=== PATIENT | male | born 1975 | race Caucasian/White ===

== ENCOUNTER 2019-03-01 13:15 | Emergency (ER) | payer OTHER ==
--- NOTE | 2019-03-01 13:21 | EDM.PDOC ---
ED HPI GENERAL MEDICAL PROBLEM - General Chief Complaint: Abdominal Pain Stated Complaint: LEFT ABD PAIN Time Seen by Provider: 03/01/19 13:15 Source of Information: Reports: Patient History Limitations: Reports: No Limitations - History of Present Illness INITIAL COMMENTS - FREE TEXT/NARRATIVE: HISTORY AND PHYSICAL: History of present illness: Patient is a 44-year-old male presents to the ED today with concern of left lower quadrant abdominal pain since since this morning. Patient states he was sleeping and the pain woke him up and since this morning it has been getting worse. Patient states he has not taken anything for his symptoms. Patient denies any health history or any other symptoms or concerns. Patient denies fever, chills, chest pain, shortness of breath, or cough. Denies headache, neck stiff ness, change in vision, syncope, or near syncope. Denies nausea, vomiting, diarrhea, constipation, or dysuria. Has not noted any blood in urine or stool. Patient has been eating and drinking appropriately. Review of systems: As per history of present illness and below otherwise all systems reviewed and negative. Past medical history: As per history of present illness and as reviewed below otherwise noncontributory. Surgical history: As per history of present illness and as reviewed below otherwise noncontributory. Social history: See social history for further information Family history: As per history of present illness and as reviewed below otherwise noncontributory. Physical exam: General: Patient is alert, oriented, and in no acute distress. Patient laying comfortably on exam table. HEENT: Atraumatic, normocephalic, pupils equal and reactive bilaterally, negative for conjunctival pallor or scleral icterus, mucous membranes moist, TMs normal bilaterally, throat clear, neck supple, nontender, trachea midline. No drooling or trismus noted. No meningeal signs. No hot potato voice noted. Lungs: Clear to auscultation, breath sounds equal bilaterally, chest nontender. Heart: S1S2, regular rate and rhythm without overt murmur Abdomen: Soft, nondistended, moderate tenderness of the LLQ without guarding. Negative for masses or hepatosplenomegaly. Negative for costovertebral tenderness. Pelvis: Stable nontender. Genitourinary: Deferred. Rectal: Deferred. Skin: Intact, warm, dry. No lesions or rashes noted. Extremities: Atraumatic, negative for cords or calf pain. Neurovascular unremarkable. Neuro: Awake, alert, oriented. Cranial nerves II through XII unremarkable. Cerebellum unremarkable. Motor and sensory unremarkable throughout. Exam nonfocal. Notes: Discussed the importance for follow-up with general surgery. Voices understanding and is agreeable to plan of care. Denies any further questions or concerns at this time. Diagnostics: CBC, CMP, UA, lipase, EKG, chest x-ray, abdominal pelvic CT Therapeutics: NS Prescription: Ciprofloxacin, metronidazole Impression: Diverticulitis Plan: 1. Take medication as prescribed. You can alternate ibuprofen and Tylenol as directed for pain and discomfort. 2. Remain on an all liquid diet for the next 48 hours or until improvement of symptoms. 3. Follow up with the general surgeon and your primary care provider as discussed. Return to the ED as needed and as discussed. Definitive disposition and diagnosis as appropriate pending reevaluation and review of above. Right Lower Abdominal Pain Score (Numeric/FACES): 10 - Related Data Allergies Allergy/AdvReac Type Severity Reaction Status Date / Time Penicillins Allergy Cannot Verified 03/01/19 13:21 Remember Home Meds: Home Meds Aspirin 1 tab PO DAILY 01/14/18 [History] Pantoprazole [ProTONIX] 40 mg PO ACBREAKFAST #30 tab.cr 01/15/18 [Rx] Past Medical History - Past Health History Medical/Surgical History: Denies Medical/Surgical History Gastrointestinal History: Reports: GERD - Past Surgical History GI Surgical History: Reports: None Social & Family History - Family History Family Medical History: Noncontributory - Caffeine Use Caffeine Use: Reports: Coffee, Energy Drinks ED ROS GENERAL - Review of Systems Review Of Systems: Comprehensive ROS is negative, except as noted in HPI. ED EXAM, GENERAL - Physical Exam Exam: See Below (see dictation) Course - Vital Signs Last Recorded V/S: Last Vital Signs Temp 97.8 F 03/01/19 13:21 Pulse 80 03/01/19 15:10 Resp 18 03/01/19 15:10 BP 132/76 03/01/19 15:10 Pulse Ox 95 03/01/19 15:10 - Orders/Labs/Meds Orders: Active Orders 24 hr Category Date Time Status EKG Documentation Completion [RC] STAT Care 03/01/19 13:38 Active Labs: Laboratory Tests 03/01/19 03/01/1919 Range/Units 13:26 13:48 13:48 WBC 11.70 H (4.0-11.0) K/uL RBC 5.24 (4.50-5.90) M/uL Hgb 14.6 (13.0-17.0) g/dL Hct 44.0 (38.0-50.0) % MCV 84.0 (80.0-98.0) fL MCH 27.9 (27.0-32.0) pg MCHC 33.2 (31.0-37.0) g/dL RDW Std Deviation 49.9 (28.0-62.0) fl RDW Coeff of Sarah 16 H (11.0-15.0) % Plt Count 277 (150-400) K/uL MPV 9.40 (7.40-12.00) fL Neut % (Auto) 69.9 (48.0-80.0) % Lymph % (Auto) 20.3 (16.0-40.0) % Lander % (Auto) 7.8 (0.0-15.0) % Eos % (Auto) 1.8 (0.0-7.0) % Baso % (Auto) 0.2 (0.0-1.5) % Neut # (Auto) 8.2 H (1.4-5.7) K/uL Lymph # (Auto) 2.4 (0.6-2.4) K/uL Lander # (Auto) 0.9 H (0.0-0.8) K/uL Eos # (Auto) 0.2 (0.0-0.7) K/uL Baso # (Auto) 0.0 (0.0-0.1) K/uL Nucleated RBC % 0.0 /100WBC Nucleated RBCs # 0 K/uL Sodium 143 (136-148) mmol/L Potassium 3.7 (3.5-5.1) mmol/L Chloride 107 (98-107) mmol/L Carbon Dioxide 26.8 (21.0-32.0) mmol/L BUN 16 (7.0-18.0) mg/dL Creatinine 1.0 (0.8-1.3) mg/dL Est Cr Clr Drug Dosing 83.29 mL/min Estimated GFR (MDRD) > 60.0 ml/min Glucose 106 (74-106) mg/dL Calcium 8.3 L (8.5-10.1) mg/dL Total Bilirubin 0.6 (0.2-1.0) mg/dL AST 16 (15-37) IU/L ALT 30 (14-63) IU/L Alkaline Phosphatase 105 (46-116) U/L Total Protein 7.1 (6.4-8.2) g/dL Albumin 3.5 (3.4-5.0) g/dL Globulin 3.6 (2.6-4.0) g/dL Albumin/Globulin Ratio 1.0 (0.9-1.6) Lipase 105 (73-393) U/L Urine Color YELLOW Urine Appearance CLEAR Urine pH 6.0 (5.0-8.0) Ur Specific [place] >= 1.030 (1.001-1.035) Urine Protein NEGATIVE (NEGATIVE) mg/dL Urine Glucose (UA) NEGATIVE (NEGATIVE) mg/dL Urine Ketones NEGATIVE (NEGATIVE) mg/dL Urine Occult Blood TRACE-LYSED H (NEGATIVE) Urine Nitrite NEGATIVE (NEGATIVE) Urine Bilirubin NEGATIVE (NEGATIVE) Urine Urobilinogen 1.0 (<2.0) EU/dL Ur Leukocyte Esterase NEGATIVE (NEGATIVE) Urine RBC 1-3 (0-2/HPF) Urine WBC 0-2 (0-5/HPF) Ur Epithelial Cells OCCASIONAL (NONE-FEW) Urine Bacteria FEW (NEGATIVE) Urine Mucus MODERATE (NONE-MOD) Meds: Medications Discontinued Medications Generic Name Dose Route Start Last Admin Trade Name Freq PRN Reason Stop Dose Admin Sodium Chloride 1,000 mls @ 999 mls/hr 03/01/19 13:37 03/01/19 13:56 Normal Saline IV 03/01/19 14:37 999 mls/hr BOLUS ONE Administration Iopamidol 100 ml 03/01/19 14:53 03/01/19 14:55 Isovue-370 (76%) IVPUSH 03/01/19 14:54 100 ml ONETIME STA Administration Departure - Departure Time of Disposition: 15:57 Disposition: Home, Self-Care 01 Clinical Impression: Diverticulitis - Discharge Information Referrals: Judah Ramesh MD [Primary Care Provider] - Forms: ED Department Discharge Additional Instructions: The following information is given to patients seen in the emergency department who are being discharged to home. This information is to outline your options for follow-up care. We provide all patients seen in our emergency department with a follow-up referral. The need for follow-up, as well as the timing and circumstances, are variable depending upon the specifics of your emergency department visit. If you don't have a primary care physician on staff, we will provide you with a referral. We always advise you to contact your personal physician following an emergency department visit to inform them of the circumstance of the visit and for follow-up with them and/or the need for any referrals to a consulting specialist. The emergency department will also refer you to a specialist when appropriate. This referral assures that you have the opportunity for follow-up care with a specialist. All of these measure are taken in an effort to provide you with optimal care, which includes your follow-up. Under all circumstances we always encourage you to contact your private physician who remains a resource for coordinating your care. When calling for follow-up care, please make the office aware that this follow-up is from your recent emergency room visit. If for any reason you are refused follow-up, please contact the [facility] Emergency Department at and asked to speak to the emergency department charge nurse. [facility] Primary Care [address] [place], [place] [id number] [address] [address] [facility] - General Surgery Professional Building [address] [place] [address], [address] [place] [address] 1. Take medication as prescribed. You can alternate ibuprofen and Tylenol as directed for pain and discomfort. 2. Remain on an all liquid diet for the next 48 hours or until improvement of symptoms. 3. Follow up with the general surgeon and your primary care provider as discussed. Return to the ED as needed and as discussed. Sepsis Event Note - Focused Exam Vital Signs: Vital Signs Temp Pulse Resp BP Pulse Ox 03/01/19 15:10 80 18 132/76 95 03/01/19 13:21 97.8 F 94 18 126/81 95 Date Exam was Performed: 03/01/19 Time Exam was Performed: 15:52 - My Orders Last 24 Hours: My Active Orders 03/01/19 13:38 EKG Documentation Completion [RC] STAT - Assessment/Plan Last 24 Hours: My Active Orders 03/01/19 13:38 EKG Documentation Completion [RC] STAT
[2019-03-01] MEDS ORDERED: Sodium Chloride 0.9% 1,000 ML IV ONE (13:37)
--- NOTE | 2019-03-01 13:57 | CR ---
INDICATION: Pt w/abd pain. TECHNIQUE: Chest 1 view. COMPARISON: 01/14/18 FINDINGS: Cardiovascular and mediastinum: Heart size and vasculature are normal in caliber and appearance. Mediastinum is within normal limits. Lungs and pleural space: Lungs are clear. No sign of infiltrate or mass. No sign of pleural effusion. No pneumothorax. Bones and soft tissues: No significant findings. IMPRESSION: Unremarkable chest. Dictated by: Easton Jacques MD @ 03/01/2019 13:55:02 (Electronically Signed)
[2019-03-01 14:24] LABS: BLOOD UREA NITROGEN,BUN 16 mg/dL (7.0-18.0); CARBON DIOXIDE,CO2 26.8 mmol/L (21.0-32.0); CHLORIDE,CL 107 mmol/L (98-107); GLUCOSE RANDOM 106 mg/dL (74-106); LIPASE 105 U/L (73-393); POTASSIUM,K 3.7 mmol/L (3.5-5.1); SODIUM,NA 143 mmol/L (136-148)
[2019-03-01] MEDS ORDERED: Iopamidol 755 Mg/ML 100 ML Bottle IVPUSH STA (14:53)
[2019-03-01 15:10] VITALS: BP 132/76; PULSE 80
--- NOTE | 2019-03-01 15:31 | CT ---
INDICATION: Left lower quadrant pain since 6 a.m. this morning. TECHNIQUE: CT of abdomen and pelvis performed after IV injection of 100 mL of Isovue-370. COMPARISON: CT 11/10/2015 FINDINGS: Mild linear atelectasis in the dependent lung bases. Tiny bleb in the right lower lobe. Tiny cyst in the right kidney. Small to moderate sized duodenal diverticulum with air-fluid level is slightly larger. Colonic diverticulosis. Moderate wall thickening involving a long segment of the mid and proximal sigmoid colon likely related to the underlying diverticulosis. The acute inflammatory soft tissue stranding about the mid sigmoid colon seen previously is no longer present consistent with resolution of acute diverticulitis. New mild to moderate wall thickening involving the mid and distal descending colon over a 6-7 cm segment with surrounding inflammatory fat stranding particularly about a diverticulum on image 96. Findings consistent with acute diverticulitis involving the descending colon. No abscess or free air. Appendix normal. Remainder negative. IMPRESSION: 1. CT findings typical of acute diverticulitis involving the mid and distal descending colon without abscess or free intraperitoneal air. 2. Resolution of sigmoid colonic diverticulitis. Moderately prominent wall thickening persists in the mid and proximal sigmoid colon likely related to underlying diverticulosis. Other findings as above. Please note that all CT scans at this facility use dose modulation, iterative reconstruction, and/or weight-based dosing when appropriate to reduce radiation dose to as low as reasonably achievable. Dictated by Clifford Esteves MD @ Mar 01 2019 3:23PM Signed by Dr. Clifford Esteves @ Mar 01 2019 3:30PM
== END 2019-03-01 16:20 | disposition home or self-care (01) ==
LOC: MW.ED 13:15
DX: K57.32 Diverticulitis of large intestine without perforation or abscess without bleeding (principal); K21.9 Gastro-esophageal reflux disease without esophagitis; Z88.0 Allergy status to penicillin; Z79.82 Long term (current) use of aspirin
CPT/HCPCS: 71045; 74177; 80053; 81001; 83690; 85025; 93005; 96360; 99284; J7030; Q9967

== ENCOUNTER 2019-03-02 02:14 | Observation (INO) | payer OTHER ==
[2019-03-02] MEDS ORDERED: Morphine 2 MG/ML Syringe IVPUSH ONE (02:29)
[2019-03-02] MEDS ORDERED: Sodium Chloride 0.9% 2.5 ML Syringe FLUSH PRN (02:29)
[2019-03-02] MEDS ORDERED: Ondansetron 4 MG/2 ML SDV IVPUSH ONE (02:29)
[2019-03-02] MEDS ORDERED: Sodium Chloride 0.9% 1,000 ML IV ONE (02:29)
[2019-03-02] MEDS ORDERED: Sodium Chloride 0.9% 10 ML Syringe FLUSH PRN (02:29)
--- NOTE | 2019-03-02 02:34 | EDM.PDOC ---
ED HPI GENERAL MEDICAL PROBLEM - General Chief Complaint: Abdominal Pain Stated Complaint: ABD PAIN Time Seen by Provider: 03/02/19 02:22 - History of Present Illness INITIAL COMMENTS - FREE TEXT/NARRATIVE: HISTORY AND PHYSICAL: History of present illness: The patient is a 44-year-old male who was seen here yesterday afternoon, approximately 12 hours ago, and was evaluated with labs and a CAT scan and was diagnosed with acute diverticulitis involving the mid and distal descending colon without abscess or free air and was started on antibiotics, Cipro and Flagyl. At the presentation earlier today he did not require pain medication and he says that he went home and was feeling okay and pushing a lot of hydration and that at approximately 9 PM, 5-1/2 hours ago, the pain seemed to get suddenly worse in the left lower quadrant and he had significant nausea without vomiting. He said no diarrhea and he has not taken any [id number] medications for pain. He says that he took his first dose of antibiotics when he got home he has not had a fever since the pain restarted. He has no flank pain and no urinary complaints.. The CT scan was reviewed by me as well as his provider note please see below for more details. Review of systems: As per history of present illness and below otherwise all systems reviewed and negative. Past medical history: As per history of present illness and as reviewed below otherwise noncontributory. Surgical history: As per history of present illness and as reviewed below otherwise noncontributory. Social history: No reported history of drug or alcohol abuse. Family history: As per history of present illness and as reviewed below otherwise noncontributory. Physical exam: General: Well-developed well-nourished mildly overweight man who looks uncomfortable in the ED but is nontoxic. Vital signs are noted by me HEENT: Atraumatic, normocephalic, pupils reactive, negative for conjunctival pallor or scleral icterus, mucous membranes moist, throat clear, neck supple, nontender, trachea midline. Lungs: Clear to auscultation, breath sounds equal bilaterally, chest nontender. Heart: S1S2, regular, negative for clicks, rubs, or JVD. Abdomen: Soft, nondistended, left lower quadrant tenderness which is moderate with some voluntary guarding but no involuntary guarding or rebound and bowel sounds are hypoactive without any tympany on percussion, there are no masses or hepatosplenomegaly. Negative for costovertebral tenderness. Pelvis: Stable nontender. Genitourinary: Deferred. Rectal: Deferred. Extremities: Atraumatic, negative for cords or calf pain. Neurovascular unremarkable. Neuro: Awake, alert, oriented. Cranial nerves II through XII unremarkable. Cerebellum unremarkable. Motor and sensory unremarkable throughout. Exam nonfocal. Diagnostics: CBC CMP lactic acid abdominal x-rays Therapeutics: IV fluids Zofran morphine Cipro and Flagyl CT scan done earlier was reviewed which it did reveal a long segment of mid and proximal sigmoid colon thickening which appeared to be consistent with a resolution of an acute diverticulitis and there was new mild to moderate wall thickening involving the mid and distal descending colon over a 6-7 cm segment with surrounding inflammatory fat and fat stranding without perforation consistent with an acute diverticulitis. There is no evidence of free air or abscess formation. When I discussed the findings of the resolution of sigmoid colonic diverticulitis with the patient says he was never diagnosed with that in the past and was unaware of his findings Patient is feeling significantly better after medications. His WBC count has elevated from 11-14.6 and we are currently awaiting the rest of his testing results and I will discuss this case with Dr. Gooden 0435: Case was discussed with Dr. Gooden who has concerns about the rising white count and the exacerbation of pain and feels the patient should be observed with the hospitalist service and he will be on consult. 0440: Findings were discussed with the patient as well as our hospitalist Dr. Tinoco; we will admit him observation and give a dose of Cipro and Flagyl IV and continue to monitor his WBC count. The patient is agreeable and says he does feels significantly better here Impression: Exacerbation of left lower quadrant pain with recently diagnosed diverticulitis Definitive disposition and diagnosis as appropriate pending reevaluation and review of above. lower left abdominal Pain Score (Numeric/FACES): 10 - Related Data Allergies Allergy/AdvReac Type Severity Reaction Status Date / Time Penicillins Allergy Cannot Verified 03/02/19 02:18 Remember Home Meds: Home Meds Aspirin 1 tab PO DAILY 01/14/18 [History] Pantoprazole [ProTONIX] 40 mg PO ACBREAKFAST #30 tab.cr 01/15/18 [Rx] Past Medical History - Past Health History Medical/Surgical History: Denies Medical/Surgical History Gastrointestinal History: Reports: GERD, Other (See Below) Other Gastrointestinal History: diverticulitis - Infectious Disease History Infectious Disease History: Reports: None - Past Surgical History GI Surgical History: Reports: None Social & Family History - Family History Family Medical History: Noncontributory - Tobacco Use Smoking Status *Q: Current Every Day Smoker Years of Tobacco use: 34 Packs/Tins Daily: 1 - Caffeine Use Caffeine Use: Reports: Coffee, Energy Drinks - Recreational Drug Use Recreational Drug Use: No ED ROS GENERAL - Review of Systems Review Of Systems: Comprehensive ROS is negative, except as noted in HPI. ED EXAM, GENERAL - Physical Exam Exam: See Below (see dictation) Course - Vital Signs Last Recorded V/S: Last Vital Signs Temp 36.3 C 03/02/19 02:14 Pulse 84 03/02/19 04:00 Resp 18 03/02/19 04:00 BP 117/69 03/02/19 04:00 Pulse Ox 96 03/02/19 04:00 - Orders/Labs/Meds Orders: Active Orders 24 hr Category Date Time Status Patient Status [ADT] Stat ADT 03/02/19 04:42 Ordered Notify Provider Consults [RC] ASDIRECTED Care 03/02/19 04:40 Ordered Consult to Physician [CONS] Stat Cons 03/02/19 04:40 Ordered Ciprofloxacin in D5W [Cipro in D5W 400 MG/200 ML] 400 Med 03/02/19 04:45 Ordered mg Premix Bag 1 bag IV Q12H Levofloxacin/Dextrose 5%-Water [Levaquin in D5W 500 MG/ Med 03/02/19 04:43 Stop Req 100 ML] 500 mg Premix Bag 1 bag IV ONETIME Sodium Chloride 0.9% [Saline Flush] Med 03/02/19 02:29 Active 10 ml FLUSH ASDIRECTED PRN Sodium Chloride 0.9% [Saline Flush] Med 03/02/19 02:29 Active 2.5 ml FLUSH ASDIRECTED PRN metroNIDAZOLE/Normal Saline [Flagyl 500 MG in NS 100 ML Med 03/02/19 04:43 Ordered ] 500 mg Premix Bag 1 bag IV ONETIME Saline Lock Insert [OM.PC] Stat Oth 03/02/19 02:28 Ordered Medication Orders Levofloxacin/Dextrose 500 mg/ (Premix) 100 mls @ 100 mls/hr IV ONETIME ONE Stop: 03/02/19 05:42 Metronidazole 500 mg/ Premix 100 mls @ 100 mls/hr IV ONETIME ONE Stop: 03/02/19 05:42 Ciprofloxacin/Dextrose 400 mg/ (Premix) 200 mls @ 200 mls/hr IV Q12H ROZINA Sodium Chloride (Saline Flush) 10 ml FLUSH ASDIRECTED PRN PRN Reason: Keep Vein Open Sodium Chloride (Saline Flush) 2.5 ml FLUSH ASDIRECTED PRN PRN Reason: Keep Vein Open Labs: Laboratory Tests 03/02/19 03/02/19 03/02/19 Range/Units 02:25 02:25 02:25 WBC 14.66 H (4.0-11.0) K/uL RBC 5.39 (4.50-5.90) M/uL Hgb 15.1 (13.0-17.0) g/dL Hct 44.6 (38.0-50.0) % MCV 82.7 (80.0-98.0) fL MCH 28.0 (27.0-32.0) pg MCHC 33.9 (31.0-37.0) g/dL RDW Std Deviation 48.7 (28.0-62.0) fl RDW Coeff of Sarah 16 H (11.0-15.0) % Plt Count 295 (150-400) K/uL MPV 9.50 (7.40-12.00) fL Neut % (Auto) 80.4 H (48.0-80.0) % Lymph % (Auto) 10.3 L (16.0-40.0) % [place] % (Auto) 7.8 (0.0-15.0) % Eos % (Auto) 1.4 (0.0-7.0) % Baso % (Auto) 0.1 (0.0-1.5) % Neut # (Auto) 11.8 H (1.4-5.7) K/uL Lymph # (Auto) 1.5 (0.6-2.4) K/uL [place] # (Auto) 1.1 H (0.0-0.8) K/uL Eos # (Auto) 0.2 (0.0-0.7) K/uL Baso # (Auto) 0.0 (0.0-0.1) K/uL Nucleated RBC % 0.0 /100WBC Nucleated RBCs # 0 K/uL Lactate 0.9 (0.20-2.00) mmol/L Sodium 140 (136-148) mmol/L Potassium 3.8 (3.5-5.1) mmol/L Chloride 105 (98-107) mmol/L Carbon Dioxide 23.2 (21.0-32.0) mmol/L BUN 14 (7.0-18.0) mg/dL Creatinine 1.0 (0.8-1.3) mg/dL Est Cr Clr Drug Dosing 83.29 mL/min Estimated GFR (MDRD) > 60.0 ml/min Glucose 96 (74-106) mg/dL Calcium 8.2 L (8.5-10.1) mg/dL Total Bilirubin 0.8 (0.2-1.0) mg/dL AST 12 L (15-37) IU/L ALT 29 (14-63) IU/L Alkaline Phosphatase 105 (46-116) U/L Total Protein 7.4 (6.4-8.2) g/dL Albumin 3.6 (3.4-5.0) g/dL Globulin 3.8 (2.6-4.0) g/dL Albumin/Globulin Ratio 0.9 (0.9-1.6) Meds: Medications Generic Name Dose Route Start Last Admin Trade Name Freq PRN Reason Stop Dose Admin Levofloxacin/Dextrose 500 mg/ 100 mls @ 100 mls/hr 03/02/19 04:43 Premix IV 03/02/19 05:42 ONETIME ONE Metronidazole 500 mg/ Premix 100 mls @ 100 mls/hr 03/02/19 04:43 IV 03/02/19 05:42 ONETIME ONE Ciprofloxacin/Dextrose 400 mg/ 200 mls @ 200 mls/hr 03/02/19 04:45 Premix IV Q12H ROZINA Sodium Chloride 10 ml 03/02/19 02:29 Saline Flush FLUSH ASDIRECTED PRN Keep Vein Open Sodium Chloride 2.5 ml 03/02/19 02:29 Saline Flush FLUSH ASDIRECTED PRN Keep Vein Open Discontinued Medications Generic Name Dose Route Start Last Admin Trade Name Freq PRN Reason Stop Dose Admin Sodium Chloride 1,000 mls @ 999 mls/hr 03/02/19 02:29 03/02/19 03:00 Normal Saline IV 03/02/19 03:29 999 mls/hr STAT ONE Administration Morphine Sulfate 4 mg 03/02/19 02:29 03/02/19 02:44 Morphine IVPUSH 03/02/19 02:30 4 mg ONETIME ONE Administration Ondansetron HCl 4 mg 03/02/19 02:29 03/02/19 02:44 Zofran IVPUSH 03/02/19 02:30 4 mg ONETIME ONE Administration Departure - Departure Time of Disposition: 04:46 Disposition: Refer to Observation Condition: Good Clinical Impression: Diverticulitis large intestine Qualifiers: Diverticulitis bleeding: unspecified bleeding status Diverticulitis complication: without perforation or abscess Qualified Code(s): K57.32 - Diverticulitis of large intestine without perforation or abscess without bleeding - Discharge Information Referrals: PCP,None [Primary Care Provider] - Forms: ED Department Discharge Sepsis Event Note - Evaluation Sepsis Screening Result: No Definite Risk - Focused Exam Vital Signs: Vital Signs Temp Pulse Resp BP Pulse Ox 03/02/19 04:00 84 18 117/69 96 03/02/19 02:14 36.3 C 115 H 18 134/85 99 Date Exam was Performed: 03/02/19 Time Exam was Performed: 04:45 - My Orders Last 24 Hours: My Active Orders 03/02/19 02:28 Saline Lock Insert [OM.PC] Stat 03/02/19 02:29 Sodium Chloride 0.9% [Saline Flush] 10 ml FLUSH ASDIRECTED PRN Sodium Chloride 0.9% [Saline Flush] 2.5 ml FLUSH ASDIRECTED PRN 03/02/19 04:40 Notify Provider Consults [RC] ASDIRECTED Consult to Physician [CONS] Stat 03/02/19 04:42 Patient Status [ADT] Stat 03/02/19 04:43 Levofloxacin/Dextrose 5%-Water [Levaquin in D5W 500 MG/100 ML] 500 mg Premix Bag 1 bag IV ONETIME metroNIDAZOLE/Normal Saline [Flagyl 500 MG in NS 100 ML] 500 mg Premix Bag 1 bag IV ONETIME 03/02/19 04:45 Ciprofloxacin in D5W [Cipro in D5W 400 MG/200 ML] 400 mg Premix Bag 1 bag IV Q12H - Assessment/Plan Last 24 Hours: My Active Orders 03/02/19 02:28 Saline Lock Insert [OM.PC] Stat 03/02/19 02:29 Sodium Chloride 0.9% [Saline Flush] 10 ml FLUSH ASDIRECTED PRN Sodium Chloride 0.9% [Saline Flush] 2.5 ml FLUSH ASDIRECTED PRN 03/02/19 04:40 Notify Provider Consults [RC] ASDIRECTED Consult to Physician [CONS] Stat 03/02/19 04:42 Patient Status [ADT] Stat 03/02/19 04:43 Levofloxacin/Dextrose 5%-Water [Levaquin in D5W 500 MG/100 ML] 500 mg Premix Bag 1 bag IV ONETIME metroNIDAZOLE/Normal Saline [Flagyl 500 MG in NS 100 ML] 500 mg Premix Bag 1 bag IV ONETIME 03/02/19 04:45 Ciprofloxacin in D5W [Cipro in D5W 400 MG/200 ML] 400 mg Premix Bag 1 bag IV Q12H
[2019-03-02 03:06] LABS: BLOOD UREA NITROGEN,BUN 14 mg/dL (7.0-18.0); CARBON DIOXIDE,CO2 23.2 mmol/L (21.0-32.0); CHLORIDE,CL 105 mmol/L (98-107); GLUCOSE RANDOM 96 mg/dL (74-106); POTASSIUM,K 3.8 mmol/L (3.5-5.1); SODIUM,NA 140 mmol/L (136-148)
--- NOTE | 2019-03-02 04:34 | CR ---
Indication: Abdominal pain Technique: Upright and supine views of the abdomen Comparison: CT abdomen pelvis 03/01/2019 Findings: There are no abnormally distended bowel loops. No air-fluid levels are demonstrated on upright view. There is no free intraperitoneal air. The visualized osseous structures are unremarkable. The included lung bases are clear. Impression: Nonobstructive bowel gas pattern. No pneumoperitoneum. Dictated by Aristides Whitten MD @ Mar 02 2019 4:29AM Signed by Dr. Aristides Whitten @ Mar 02 2019 4:32AM
[2019-03-02] MEDS ORDERED: Levofloxacin/Dextrose 5%-Water 500 MG in Premix Bag 1 BAG IV ONE (04:43)
[2019-03-02] MEDS ORDERED: metroNIDAZOLE/Normal Saline 500 MG in Premix Bag 1 BAG IV ONE (04:43)
[2019-03-02] MEDS ORDERED: Ciprofloxacin in D5W 400 MG in Premix Bag 1 BAG IV SCH ×2 (04:45)
[2019-03-02] MEDS ORDERED: Sodium Chloride 0.9% 1,000 ML IV SCH (05:00)
[2019-03-02] MEDS ORDERED: metroNIDAZOLE/Normal Saline 500 MG in Premix Bag 1 BAG IV SCH (06:00)
[2019-03-02] MEDS ORDERED: Ondansetron 4 MG/2 ML SDV IVPUSH PRN (06:04)
[2019-03-02] MEDS: Ciprofloxacin in D5W 400 MG in Premix Bag 1 BAG IV SCH ×4 (06:40→17:26)
[2019-03-02] MEDS: Morphine 2 MG/ML Syringe IVPUSH PRN ×3 (06:41→16:44)
[2019-03-02] MEDS: Sodium Chloride 0.9% 1,000 ML IV SCH ×2 (06:49→14:08)
[2019-03-02] MEDS: metroNIDAZOLE/Normal Saline 500 MG in Premix Bag 1 BAG IV SCH ×2 (12:28→20:27)
--- NOTE | 2019-03-02 12:31 | PCM.HP.2 ---
<Mariann Farmer - Last Filed: 03/02/19 12:32> H&P History of Present Illness - General Date of Service: 03/02/19 Admit Problem/Dx: Admission Diagnosis/Problem Admission Diagnosis/Problem Diverticulitis Source of Information: Patient History Limitations: Reports: No Limitations - History of Present Illness Initial Comments - Free Text/Narative: Patient is a 44-year-old male with a past medical history of hypertension on lisinopril presenting after 12 hours of increasing left lower quadrant abdominal pain. Patient initially was diagnosed with diverticulitis of the mid to distal colon and was sent home with antibiotics; however on arrival to home prior to taking his first dose of antibiotics patient experienced increasing/ and worsening of his left lower quadrant pain accompanied with nausea and decreased appetite. Patient denies any fevers, chills, body aches but does endorse pain on movement. Mentions last bowel movement was on Saturday; also mentions his last meal was on Saturday as well. Denies any history of diverticulitis in the past. Does endorse a pack per day smoking habit. lower left abdominal Pain Score (Numeric/FACES): 6 - Related Data Allergies/Adverse Reactions: Allergies Allergy/AdvReac Type Severity Reaction Status Date / Time Penicillins Allergy Swelling Verified 03/02/19 20:37 Home Medications: Home Meds Aspirin 1 tab PO DAILY 01/14/18 [History] Pantoprazole [ProTONIX] 40 mg PO ACBREAKFAST #30 tab.cr 01/15/18 [Rx] Acetaminophen [Tylenol] 650 mg PO Q6H PRN tablet 03/04/19 [Rx] Ciprofloxacin HCl [Cipro] 500 mg PO BID 7 Days #14 tablet 03/04/19 [Rx] metroNIDAZOLE [Flagyl] 500 mg PO Q8H 7 Days #21 tab 03/04/19 [Rx] Past Medical History - Past Health History Medical/Surgical History: Denies Medical/Surgical History Gastrointestinal History: Reports: GERD, Other (See Below) Other Gastrointestinal History: diverticulitis - Infectious Disease History Infectious Disease History: Reports: None - Past Surgical History GI Surgical History: Reports: None Social & Family History - Family History Family Medical History: Noncontributory - Tobacco Use Smoking Status *Q: Current Every Day Smoker Years of Tobacco use: 34 Packs/Tins Daily: 1 - Caffeine Use Caffeine Use: Reports: None Caffeine Use Comment: maybe once a week - Recreational Drug Use Recreational Drug Use: No H&P Review of Systems - Review of Systems: Review Of Systems: See Below General: Denies: Fever, Chills HEENT: Reports: No Symptoms Pulmonary: Reports: No Symptoms Cardiovascular: Reports: No Symptoms Gastrointestinal: Reports: Abdominal Pain, Decreased Appetite, Nausea. Denies: Constipation, Diarrhea Genitourinary: Reports: No Symptoms Musculoskeletal: Reports: No Symptoms Psychiatric: Reports: No Symptoms Neurological: Reports: No Symptoms Exam - Exam Exam: See Below - Vital Signs Vital Signs: Last Vital Signs Temp 99.5 F 03/02/19 12:00 Pulse 96 03/02/19 12:00 Resp 18 03/02/19 12:00 BP 117/72 03/02/19 12:00 Pulse Ox 94 L 03/02/19 12:00 Weight: 99.9 kg - Exam General: Alert, Oriented HEENT: EOMI Neck: Supple, Trachea Midline Lungs: Clear to Auscultation, Normal Respiratory Effort Cardiovascular: Regular Rate, Regular Rhythm GI/Abdominal Exam: Other (tenderness of LLQ w/o rebound tendernes. No flank tenderness. NO organomegaly. hyperactive BS ) Back Exam: Normal Inspection Extremities: Normal Inspection Neuro Extensive - Mental Status: Alert, Oriented x3 - Patient Data Lab Results Last 24 hrs: Laboratory Results - last 24 hr 03/02/19 03/02/19 03/02/19 Range/Units 02:25 02:25 02:25 WBC 14.66 H (4.0-11.0) K/uL RBC 5.39 (4.50-5.90) M/uL Hgb 15.1 (13.0-17.0) g/dL Hct 44.6 (38.0-50.0) % MCV 82.7 (80.0-98.0) fL MCH 28.0 (27.0-32.0) pg MCHC 33.9 (31.0-37.0) g/dL RDW Std Deviation 48.7 (28.0-62.0) fl RDW Coeff of Sarah 16 H (11.0-15.0) % Plt Count 295 (150-400) K/uL MPV 9.50 (7.40-12.00) fL Neut % (Auto) 80.4 H (48.0-80.0) % Lymph % (Auto) 10.3 L (16.0-40.0) % [place] % (Auto) 7.8 (0.0-15.0) % Eos % (Auto) 1.4 (0.0-7.0) % Baso % (Auto) 0.1 (0.0-1.5) % Neut # (Auto) 11.8 H (1.4-5.7) K/uL Lymph # (Auto) 1.5 (0.6-2.4) K/uL [place] # (Auto) 1.1 H (0.0-0.8) K/uL Eos # (Auto) 0.2 (0.0-0.7) K/uL Baso # (Auto) 0.0 (0.0-0.1) K/uL Nucleated RBC % 0.0 /100WBC Nucleated RBCs # 0 K/uL Lactate 0.9 (0.20-2.00) mmol/L Sodium 140 (136-148) mmol/L Potassium 3.8 (3.5-5.1) mmol/L Chloride 105 (98-107) mmol/L Carbon Dioxide 23.2 (21.0-32.0) mmol/L BUN 14 (7.0-18.0) mg/dL Creatinine 1.0 (0.8-1.3) mg/dL Est Cr Clr Drug Dosing 83.29 mL/min Estimated GFR (MDRD) > 60.0 ml/min Glucose 96 (74-106) mg/dL Calcium 8.2 L (8.5-10.1) mg/dL Total Bilirubin 0.8 (0.2-1.0) mg/dL AST 12 L (15-37) IU/L ALT 29 (14-63) IU/L Alkaline Phosphatase 105 (46-116) U/L Total Protein 7.4 (6.4-8.2) g/dL Albumin 3.6 (3.4-5.0) g/dL Globulin 3.8 (2.6-4.0) g/dL Albumin/Globulin Ratio 0.9 (0.9-1.6) Result Diagrams: 03/02/19 02:25 03/02/19 02:25 Sepsis Event Note - Evaluation Sepsis Screening Result: No Definite Risk - Focused Exam Vital Signs: Vital Signs Temp Pulse Resp BP Pulse Ox 03/02/19 12:00 99.5 F 96 18 117/72 94 L 03/02/19 08:00 98.5 F 98 17 142/82 H 96 03/02/19 05:35 98.5 F 85 18 133/81 97 03/02/19 04:57 98.5 F 78 18 126/78 98 03/02/19 04:00 84 18 117/69 96 03/02/19 02:14 97.4 F 115 H 18 134/85 99 Date Exam was Performed: 03/02/19 Time Exam was Performed: 12:32 Problem List Initiated/Reviewed/Updated: Yes Orders Last 24hrs: Active Orders 24 hr Category Date Time Status Patient Status [ADT] Stat ADT 03/02/19 04:42 Active Notify Provider Consults [RC] ASDIRECTED Care 03/02/19 04:40 Active Vital Signs [RC] Q4H Care 03/02/19 08:00 Active Consult to Physician [CONS] Stat Cons 03/02/19 04:40 Active NPO [Nothing Per Oral Diet] [DIET] Diet 03/02/19 Breakfast Active Ciprofloxacin in D5W [Cipro in D5W 400 MG/200 ML] 400 Med 03/02/19 06:15 Active mg Premix Bag 1 bag IV Q12H Morphine Med 03/02/19 06:08 Active 2 mg IVPUSH Q4H PRN Ondansetron [Zofran] Med 03/02/19 06:04 Active 4 mg IVPUSH Q6H PRN Sodium Chloride 0.9% [Normal Saline] 1,000 ml Med 03/02/19 06:00 Active IV ASDIRECTED Sodium Chloride 0.9% [Saline Flush] Med 03/02/19 02:29 Active 10 ml FLUSH ASDIRECTED PRN Sodium Chloride 0.9% [Saline Flush] Med 03/02/19 02:29 Active 2.5 ml FLUSH ASDIRECTED PRN metroNIDAZOLE/Normal Saline [Flagyl 500 MG in NS 100 ML Med 03/02/19 13:00 Active ] 500 mg Premix Bag 1 bag IV Q8H Saline Lock Insert [OM.PC] Stat Oth 03/02/19 02:28 Ordered Code Status [Resuscitation Status] Routine Resus Stat 03/02/19 09:37 Ordered Medication Orders Ciprofloxacin/Dextrose 400 mg/ (Premix) 200 mls @ 200 mls/hr IV Q12H ROZINA Last Admin: 03/02/19 06:40 Dose: 200 mls/hr Sodium Chloride (Normal Saline) 1,000 mls @ 125 mls/hr IV ASDIRECTED ROZINA Last Admin: 03/02/19 06:49 Dose: 125 mls/hr Metronidazole 500 mg/ Premix 100 mls @ 100 mls/hr IV Q8H ROZINA Morphine Sulfate (Morphine) 2 mg IVPUSH Q4H PRN PRN Reason: Pain Last Admin: 03/02/19 10:29 Dose: 2 mg Admin: 03/02/19 06:41 Dose: 2 mg Ondansetron HCl (Zofran) 4 mg IVPUSH Q6H PRN PRN Reason: Nausea/Vomiting Sodium Chloride (Saline Flush) 10 ml FLUSH ASDIRECTED PRN PRN Reason: Keep Vein Open Sodium Chloride (Saline Flush) 2.5 ml FLUSH ASDIRECTED PRN PRN Reason: Keep Vein Open Assessment/Plan Comment:: Assessment: 1. LLQ Quadrant pain secondary to acute diverticulitis of mid to distal colon 2. Leukocytosis secondary to above 3. Hypocalcemia Plan 1. Admit to observation. Full code. N.p.o.: Will advance at appropriate intervals. Activity: Up ad brianna.. DVT prophylaxis: SCDs 2. Continue ciprofloxacin and Flagyl. Continue n.p.o. status. 3. Dr. Gooden of surgery has been officially consulted via ER: We appreciate his help on this case. 4. Pain control: Morphine 2 mg every 4 hours. 5. Continue to monitor patient and fluid status. <Derrick Christie - Last Filed: 03/07/19 14:25> H&P History of Present Illness - General Admit Problem/Dx: Admission Diagnosis/Problem Admission Diagnosis/Problem Diverticulitis lower left abdominal Pain Score (Numeric/FACES): 4 Headache Pain Score (Numeric/FACES): 5 Exam - Vital Signs Vital Signs: Last Vital Signs Temp 36.7 C 03/04/19 08:00 Pulse 74 03/04/19 08:00 Resp 18 03/04/19 08:00 BP 131/83 03/04/19 08:00 Pulse Ox 97 03/04/19 08:00 - Patient Data Result Diagrams: 03/04/19 05:33 03/04/19 05:33 Assessment/Plan Comment:: I performed a history and physical exam of the patient and discussed management with resident. I have reviewed the residents note and agree with documented findings and plan unless otherwise specified in my note.
--- NOTE | 2019-03-02 14:15 | PCM.CONS ---
H&P History of Present Illness - General Date of Service: 03/02/19 Admit Problem/Dx: Admission Diagnosis/Problem Admission Diagnosis/Problem Diverticulitis Source of Information: Patient History Limitations: Reports: No Limitations - History of Present Illness Initial Comments - Free Text/Narative: Patient is a 44-year-old gentleman who was seen in the emergency room yesterday complaining of left-sided abdominal pain. CT scan revealed diverticulitis with no evidence of abscess, perforation or microperforation. His white count at the time was 11 and 12,000. He was allowed to go home, but 12 hours later his pain got substantially worse and he re-presented to the emergency room with similar complaints. White count was now over 14,000. It was recommended that he be admitted for parenteral antibiotic therapy. He denied any fever or chills. No nausea or vomiting. No prior history of documented diverticulosis or diverticulitis. Onset of Symptoms: Reports: Gradual Duration of Symptoms: Reports: Day(s):, Chronic, Getting Worse Location: Reports: Abdomen Quality: Reports: Pressure, Throbbing Severity: Moderate Improves with: Reports: Rest Worsens with: Reports: Movement Associated Symptoms: Reports: No Other Symptoms lower left abdominal Pain Score (Numeric/FACES): 6 - Related Data Allergies/Adverse Reactions: Allergies Allergy/AdvReac Type Severity Reaction Status Date / Time Penicillins Allergy Cannot Verified 03/02/19 05:46 Remember Home Medications: Home Meds Aspirin 1 tab PO DAILY 01/14/18 [History] Pantoprazole [ProTONIX] 40 mg PO ACBREAKFAST #30 tab.cr 01/15/18 [Rx] Past Medical History - Past Health History Medical/Surgical History: Denies Medical/Surgical History Gastrointestinal History: Reports: GERD, Other (See Below) Other Gastrointestinal History: diverticulitis - Infectious Disease History Infectious Disease History: Reports: None - Past Surgical History GI Surgical History: Reports: None Social & Family History - Family History Family Medical History: Noncontributory - Tobacco Use Smoking Status *Q: Current Every Day Smoker Years of Tobacco use: 34 Packs/Tins Daily: 1 - Caffeine Use Caffeine Use: Reports: None Caffeine Use Comment: maybe once a week - Recreational Drug Use Recreational Drug Use: No H&P Review of Systems - Review of Systems: Review Of Systems: See Below General: Reports: Decreased Appetite. Denies: Fever, Chills, Malaise, Weakness , Fatigue HEENT: Reports: No Symptoms Pulmonary: Denies: Shortness of Breath, Wheezing Cardiovascular: Denies: Chest Pain, Palpitations Gastrointestinal: Reports: Abdominal Pain, Anorexia, Decreased Appetite. Denies : Black Stool, Bloody Stool, Constipation, Diarrhea, Distension, Flatus, Hematemesis, Hematochezia, Nausea, Vomiting Genitourinary: Denies: Dysuria, Frequency, Burning, Pain, Urgency Musculoskeletal: Reports: No Symptoms Skin: Denies: Cyanosis, Jaundice Psychiatric: Denies: Confusion, Depression, Anxiety Neurological: Reports: No Symptoms Hematologic/Lymphatic: Reports: No Symptoms Immunologic: Reports: No Symptoms Exam - Exam Exam: See Below - Vital Signs Vital Signs: Last Vital Signs Temp 99.5 F 03/02/19 12:00 Pulse 96 03/02/19 12:00 Resp 18 03/02/19 12:00 BP 117/72 03/02/19 12:00 Pulse Ox 94 L 03/02/19 12:00 Weight: 220 lb 3.869 oz - Exam General: Alert, Oriented, Cooperative, Moderate Distress HEENT: Conjunctiva Clear, EACs Clear, Normal Nasal Septum, Pupils Equal. No: Scleral Icterus Neck: Supple, Trachea Midline Lungs: Clear to Auscultation, Normal Respiratory Effort Cardiovascular: Regular Rate, Regular Rhythm, Normal S1, Normal S2. No: Tachycardia, Systolic Murmur GI/Abdominal Exam: Normal Bowel Sounds, Soft, No Distention, Rebound, Tender. No: Guarding, Rigid, Hernia, Mass (Male) Exam: No Hernia Rectal (Males) Exam: Deferred Back Exam: Normal Inspection Extremities: Normal Inspection, Normal Range of Motion, Non-Tender Peripheral Pulses: 4+: Posterior Tibial (L), Posterior Tibial (R), Dorsalis Pedis (L), Dorsalis Pedis (R) Skin: Warm, Dry, Intact Neurological: Cranial Nerves Intact Neuro Extensive - Mental Status: Alert, Oriented x3 Psychiatric: Alert, Normal Affect, Normal Mood - Patient Data Lab Results Last 24 hrs: Laboratory Results - last 24 hr 03/02/19 03/02/19 03/02/19 Range/Units 02:25 02:25 02:25 WBC 14.66 H (4.0-11.0) K/uL RBC 5.39 (4.50-5.90) M/uL Hgb 15.1 (13.0-17.0) g/dL Hct 44.6 (38.0-50.0) % MCV 82.7 (80.0-98.0) fL MCH 28.0 (27.0-32.0) pg MCHC 33.9 (31.0-37.0) g/dL RDW Std Deviation 48.7 (28.0-62.0) fl RDW Coeff of Sarah 16 H (11.0-15.0) % Plt Count 295 (150-400) K/uL MPV 9.50 (7.40-12.00) fL Neut % (Auto) 80.4 H (48.0-80.0) % Lymph % (Auto) 10.3 L (16.0-40.0) % [place] % (Auto) 7.8 (0.0-15.0) % Eos % (Auto) 1.4 (0.0-7.0) % Baso % (Auto) 0.1 (0.0-1.5) % Neut # (Auto) 11.8 H (1.4-5.7) K/uL Lymph # (Auto) 1.5 (0.6-2.4) K/uL [place] # (Auto) 1.1 H (0.0-0.8) K/uL Eos # (Auto) 0.2 (0.0-0.7) K/uL Baso # (Auto) 0.0 (0.0-0.1) K/uL Nucleated RBC % 0.0 /100WBC Nucleated RBCs # 0 K/uL Lactate 0.9 (0.20-2.00) mmol/L Sodium 140 (136-148) mmol/L Potassium 3.8 (3.5-5.1) mmol/L Chloride 105 (98-107) mmol/L Carbon Dioxide 23.2 (21.0-32.0) mmol/L BUN 14 (7.0-18.0) mg/dL Creatinine 1.0 (0.8-1.3) mg/dL Est Cr Clr Drug Dosing 83.29 mL/min Estimated GFR (MDRD) > 60.0 ml/min Glucose 96 (74-106) mg/dL Calcium 8.2 L (8.5-10.1) mg/dL Total Bilirubin 0.8 (0.2-1.0) mg/dL AST 12 L (15-37) IU/L ALT 29 (14-63) IU/L Alkaline Phosphatase 105 (46-116) U/L Total Protein 7.4 (6.4-8.2) g/dL Albumin 3.6 (3.4-5.0) g/dL Globulin 3.8 (2.6-4.0) g/dL Albumin/Globulin Ratio 0.9 (0.9-1.6) Result Diagrams: 03/02/19 02:25 03/02/19 02:25 Sepsis Event Note - Evaluation Sepsis Screening Result: No Definite Risk - Focused Exam Vital Signs: Vital Signs Temp Pulse Resp BP Pulse Ox 03/02/19 12:00 99.5 F 96 18 117/72 94 L 03/02/19 08:00 98.5 F 98 17 142/82 H 96 03/02/19 05:35 98.5 F 85 18 133/81 97 03/02/19 04:57 98.5 F 78 18 126/78 98 03/02/19 04:00 84 18 117/69 96 03/02/19 02:14 97.4 F 115 H 18 134/85 99 Date Exam was Performed: 03/02/19 Time Exam was Performed: 14:09 Consult PN Assessment/Plan Procedures: Procedures ASSAY OF CK (CPK) (01/14/18) ASSAY OF FREE THYROXINE (12/09/17) ASSAY OF TROPONIN QUANT (01/14/18) ASSAY THYROID STIM HORMONE (01/14/18) CARDIOVASCULAR STRESS TEST (02/24/18) CHEST X-RAY 2VW FRONTAL&LATL (11/26/14) CO/[place] DIFFUSE CAPACITY (12/17/17) COMPLETE CBC W/AUTO DIFF WBC (01/14/18) COMPREHEN METABOLIC PANEL (10/27/18) CREATINE MB FRACTION (01/14/18) CT ABD & PELVIS W/O CONTRAST (11/10/15) ECHO EXAM OF ABDOMEN (10/30/18) EMERGENCY DEPT VISIT (01/14/18) EMERGENCY DEPT VISIT (11/10/15) EMERGENCY DEPT VISIT (06/02/14) EVALUATION OF WHEEZING (12/17/17) GLYCOSYLATED HEMOGLOBIN TEST (01/14/18) HT MUSCLE IMAGE SPECT MULT (02/24/18) HYDRATION IV INFUSION INIT (01/14/18) LIPID PANEL (01/14/18) ROUTINE VENIPUNCTURE (10/27/18) THER/PROPH/DIAG INJ SC/IM (11/10/15) TTE W/DOPPLER COMPLETE (02/14/18) URINALYSIS AUTO W/SCOPE (10/27/18) X-RAY EXAM CHEST 1 VIEW (01/14/18) X-RAY EXAM CHEST 2 VIEWS (12/09/17) (1) Diverticulitis large intestine SNOMED Code(s): 5372706 Code(s): K57.32 - DVTRCLI OF LG INT W/O PERFORATION OR ABSCESS W/O BLEEDING Current Visit: Yes Qualifiers: Diverticulitis bleeding: without bleeding Diverticulitis complication: without perforation or abscess Qualified Code(s): K57.32 - Diverticulitis of large intestine without perforation or abscess without bleeding Problem List Initiated/Reviewed/Updated: Yes Plan: Recommend patient be kept nothing by mouth until his abdominal pain resolves and his white count returns to normal. Continue parenteral antibiotics in hospital until white count has returned to normal and pain has been resolved. Would then reinstitute clear to full liquids slowly. I would also recommend that he complete at least a 10 day course of antibiotics. Repeat CBC in the morning.
[2019-03-03] MEDS: Sodium Chloride 0.9% 1,000 ML IV SCH ×3 (00:33→18:19)
[2019-03-03] MEDS: metroNIDAZOLE/Normal Saline 500 MG in Premix Bag 1 BAG IV SCH ×3 (04:31→20:28)
[2019-03-03] MEDS: Ciprofloxacin in D5W 400 MG in Premix Bag 1 BAG IV SCH ×4 (05:47→17:59)
[2019-03-03 06:09] LABS: BLOOD UREA NITROGEN,BUN 11 mg/dL (7.0-18.0); CARBON DIOXIDE,CO2 23.6 mmol/L (21.0-32.0); CHLORIDE,CL 105 mmol/L (98-107); GLUCOSE RANDOM 77 mg/dL (74-106); POTASSIUM,K 3.6 mmol/L (3.5-5.1); SODIUM,NA 140 mmol/L (136-148)
--- NOTE | 2019-03-03 09:19 | PCM.PN ---
<Mariann Farmer - Last Filed: 03/03/19 11:45> - General Info Date of Service: 03/03/19 Subjective Update: Patient seen at bedside; mentioning marked improvement of pain since yesterday and is endorsing a return in his appetite. Has no other issues and/or concerns at this time. Functional Status: Reports: Pain Controlled - Review of Systems General: Denies: Fever, Chills HEENT: Denies: Eye Pain Pulmonary: Denies: Shortness of Breath, Cough Cardiovascular: Denies: Chest Pain, Palpitations Gastrointestinal: Reports: Abdominal Pain, Nausea. Denies: Diarrhea, Vomiting Genitourinary: Denies: Dysuria, Pain Musculoskeletal: Denies: Back Pain Neurological: Denies: Headache - Patient Data Vitals - Most Recent: Last Vital Signs Temp 97.4 F 03/03/19 07:00 Pulse 82 03/03/19 07:00 Resp 16 03/03/19 07:00 BP 116/72 03/03/19 07:00 Pulse Ox 97 03/03/19 07:00 Weight - Most Recent: 99.9 kg I&O - Last 24 Hours: Intake & Output 03/02/19 03/03/19 03/03/19 22:59 06:59 14:59 Intake Total 1299 1294 Output Total 1325 1300 Balance -26 -6 Lab Results Last 24 Hours: Laboratory Results - last 24 hr 03/03/19 03/03/19 Range/Units 05:25 05:25 WBC 12.57 H (4.0-11.0) K/uL RBC 5.03 (4.50-5.90) M/uL Hgb 13.8 (13.0-17.0) g/dL Hct 41.9 (38.0-50.0) % MCV 83.3 (80.0-98.0) fL MCH 27.4 (27.0-32.0) pg MCHC 32.9 (31.0-37.0) g/dL RDW Std Deviation 48.7 (28.0-62.0) fl RDW Coeff of Sarah 16 H (11.0-15.0) % Plt Count 254 (150-400) K/uL MPV 9.30 (7.40-12.00) fL Neut % (Auto) 75.0 (48.0-80.0) % Lymph % (Auto) 14.6 L (16.0-40.0) % [place] % (Auto) 9.1 (0.0-15.0) % Eos % (Auto) 1.1 (0.0-7.0) % Baso % (Auto) 0.2 (0.0-1.5) % Neut # (Auto) 9.4 H (1.4-5.7) K/uL Lymph # (Auto) 1.8 (0.6-2.4) K/uL [place] # (Auto) 1.2 H (0.0-0.8) K/uL Eos # (Auto) 0.1 (0.0-0.7) K/uL Baso # (Auto) 0.0 (0.0-0.1) K/uL Nucleated RBC % 0.0 /100WBC Nucleated RBCs # 0 K/uL Sodium 140 (136-148) mmol/L Potassium 3.6 (3.5-5.1) mmol/L Chloride 105 (98-107) mmol/L Carbon Dioxide 23.6 (21.0-32.0) mmol/L BUN 11 (7.0-18.0) mg/dL Creatinine 1.0 (0.8-1.3) mg/dL Est Cr Clr Drug Dosing 83.29 mL/min Estimated GFR (MDRD) > 60.0 ml/min Glucose 77 (74-106) mg/dL Calcium 8.2 L (8.5-10.1) mg/dL Total Bilirubin 1.3 H (0.2-1.0) mg/dL AST 15 (15-37) IU/L ALT 22 (14-63) IU/L Alkaline Phosphatase 85 (46-116) U/L Total Protein 7.0 (6.4-8.2) g/dL Albumin 3.1 L (3.4-5.0) g/dL Globulin 3.9 (2.6-4.0) g/dL Albumin/Globulin Ratio 0.8 L (0.9-1.6) Med Orders - Current: Current Medications Ciprofloxacin/Dextrose 400 mg/ (Premix) 200 mls @ 200 mls/hr IV Q12H [facility] Last Admin: 03/03/19 05:47 Dose: 200 mls/hr Sodium Chloride (Normal Saline) 1,000 mls @ 125 mls/hr IV ASDIRECTED [facility] Last Admin: 03/03/19 00:33 Dose: 125 mls/hr Metronidazole 500 mg/ Premix 100 mls @ 100 mls/hr IV Q8H [facility] Last Admin: 03/03/19 04:31 Dose: 100 mls/hr Morphine Sulfate (Morphine) 2 mg IVPUSH Q4H PRN PRN Reason: Pain Last Admin: 03/02/19 16:44 Dose: 2 mg Ondansetron HCl (Zofran) 4 mg IVPUSH Q6H PRN PRN Reason: Nausea/Vomiting Sodium Chloride (Saline Flush) 10 ml FLUSH ASDIRECTED PRN PRN Reason: Keep Vein Open Sodium Chloride (Saline Flush) 2.5 ml FLUSH ASDIRECTED PRN PRN Reason: Keep Vein Open Discontinued Medications Sodium Chloride (Normal Saline) 1,000 mls @ 999 mls/hr IV STAT ONE Stop: 03/02/19 03:29 Last Admin: 03/02/19 03:00 Dose: 999 mls/hr Levofloxacin/Dextrose 500 mg/ (Premix) 100 mls @ 100 mls/hr IV ONETIME ONE Stop: 03/02/19 05:42 Last Admin: 03/02/19 05:11 Dose: Not Given Metronidazole 500 mg/ Premix 100 mls @ 100 mls/hr IV ONETIME ONE Stop: 03/02/19 05:42 Last Admin: 03/02/19 04:57 Dose: 100 mls/hr Ciprofloxacin/Dextrose 400 mg/ (Premix) 200 mls @ 200 mls/hr IV Q12H [facility] Last Admin: 03/02/19 06:20 Dose: Not Given Sodium Chloride (Normal Saline) 1,000 mls @ 125 mls/hr IV ASDIRECTED [facility] Last Admin: 03/02/19 04:57 Dose: 125 mls/hr Metronidazole 500 mg/ Premix 100 mls @ 100 mls/hr IV Q8HR [facility] Last Admin: 03/02/19 06:49 Dose: Not Given Morphine Sulfate (Morphine) 4 mg IVPUSH ONETIME ONE Stop: 03/02/19 02:30 Last Admin: 03/02/19 02:44 Dose: 4 mg Ondansetron HCl (Zofran) 4 mg IVPUSH ONETIME ONE Stop: 03/02/19 02:30 Last Admin: 03/02/19 02:44 Dose: 4 mg - Exam General: Alert, Oriented, Cooperative HEENT: EOMI Neck: Supple Lungs: Clear to Auscultation, Normal Respiratory Effort Cardiovascular: Regular Rate, Regular Rhythm GI/Abdominal Exam: Other (LLQ tenderness; improved from yesterday. No rebound tenderness. BS hyperactive. ) Back Exam: Normal Inspection Skin: Warm, Dry Psy/Mental Status: Alert, Normal Mood Sepsis Event Note - Evaluation Sepsis Screening Result: No Definite Risk - Focused Exam Vital Signs: Vital Signs Temp Pulse Resp BP Pulse Ox 03/03/19 07:00 97.4 F 82 16 116/72 97 03/03/19 03:46 98.3 F 78 16 120/72 93 L 03/03/19 00:00 97.7 F 89 16 115/67 93 L Date Exam was Performed: 03/03/19 Time Exam was Performed: 11:45 - Problem List Review Problem List Initiated/Reviewed/Updated: Yes - My Orders Last 24 Hours: My Active Orders 03/02/19 09:37 Code Status [Resuscitation Status] Routine - Plan Plan:: Assessment: 1. LLQ Quadrant pain secondary to acute diverticulitis of mid to distal colon: improving 2. Leukocytosis secondary to above:improving 3. Hypocalcemia Plan 1. Admit to observation. Full code. Activity: Up ad brianna.. DVT prophylaxis: SCDs 2. Continue ciprofloxacin and Flagyl. Continue n.p.o. status until elevated WBC resolves: per surgery recommendations 3. Dr. Gooden of surgery has been officially consulted via ER: We appreciate his help on this case. 4. Pain control: Morphine 2 mg every 4 hours. 5. Continue to monitor patient and fluid status. <Derrick Christie - Last Filed: 03/07/19 14:26> - Patient Data Vitals - Most Recent: Last Vital Signs Temp 36.7 C 03/04/19 08:00 Pulse 74 03/04/19 08:00 Resp 18 03/04/19 08:00 BP 131/83 03/04/19 08:00 Pulse Ox 97 03/04/19 08:00 Med Orders - Current: Current Medications Discontinued Medications Acetaminophen (Tylenol) 650 mg PO Q6H PRN PRN Reason: Pain Last Admin: 03/03/19 22:05 Dose: 650 mg Acetaminophen (Tylenol) 650 mg PO Q6H [facility] Last Admin: 03/04/19 08:43 Dose: Not Given Sodium Chloride (Normal Saline) 1,000 mls @ 999 mls/hr IV STAT ONE Stop: 03/02/19 03:29 Last Admin: 03/02/19 03:00 Dose: 999 mls/hr Levofloxacin/Dextrose 500 mg/ (Premix) 100 mls @ 100 mls/hr IV ONETIME ONE Stop: 03/02/19 05:42 Last Admin: 03/02/19 05:11 Dose: Not Given Metronidazole 500 mg/ Premix 100 mls @ 100 mls/hr IV ONETIME ONE Stop: 03/02/19 05:42 Last Admin: 03/02/19 04:57 Dose: 100 mls/hr Ciprofloxacin/Dextrose 400 mg/ (Premix) 200 mls @ 200 mls/hr IV Q12H [facility] Last Admin: 03/02/19 06:20 Dose: Not Given Sodium Chloride (Normal Saline) 1,000 mls @ 125 mls/hr IV ASDIRECTED [facility] Last Admin: 03/02/19 04:57 Dose: 125 mls/hr Ciprofloxacin/Dextrose 400 mg/ (Premix) 200 mls @ 200 mls/hr IV Q12H [facility] Last Admin: 03/04/19 05:34 Dose: 200 mls/hr Metronidazole 500 mg/ Premix 100 mls @ 100 mls/hr IV Q8HR [facility] Last Admin: 03/02/19 06:49 Dose: Not Given Sodium Chloride (Normal Saline) 1,000 mls @ 125 mls/hr IV ASDIRECTED [facility] Last Admin: 03/04/19 04:04 Dose: 125 mls/hr Metronidazole 500 mg/ Premix 100 mls @ 100 mls/hr IV Q8H [facility] Last Admin: 03/04/19 04:05 Dose: 100 mls/hr Morphine Sulfate (Morphine) 4 mg IVPUSH ONETIME ONE Stop: 03/02/19 02:30 Last Admin: 03/02/19 02:44 Dose: 4 mg Morphine Sulfate (Morphine) 2 mg IVPUSH Q4H PRN PRN Reason: Pain Last Admin: 03/03/19 13:28 Dose: 2 mg Ondansetron HCl (Zofran) 4 mg IVPUSH ONETIME ONE Stop: 03/02/19 02:30 Last Admin: 03/02/19 02:44 Dose: 4 mg Ondansetron HCl (Zofran) 4 mg IVPUSH Q6H PRN PRN Reason: Nausea/Vomiting Sodium Chloride (Saline Flush) 10 ml FLUSH ASDIRECTED PRN PRN Reason: Keep Vein Open Sodium Chloride (Saline Flush) 2.5 ml FLUSH ASDIRECTED PRN PRN Reason: Keep Vein Open - Plan Plan:: I have seen and evaluated the patient and agree with the residents note unless specified in my note
--- NOTE | 2019-03-03 13:17 | PCM.CONSN ---
- General Info Date of Service: 03/03/19 Admission Dx/Problem (Free Text): Admission Diagnosis/Problem Admission Diagnosis/Problem Diverticulitis Subjective Update: Feeling much better today. States is passing gas but no BM yet. Appetite returning. Rates pain a "0-1". No pain med since 1600 yesterday. Functional Status: Reports: Pain Controlled, Ambulating, Urinating. Denies: New Symptoms - Review of Systems General: Denies: Fever, Weakness, Fatigue, Malaise, Chills HEENT: Reports: No Symptoms Pulmonary: Denies: Shortness of Breath, Cough Cardiovascular: Denies: Chest Pain Gastrointestinal: Reports: Abdominal Pain, Flatus. Denies: Constipation, Decreased Appetite, Diarrhea, Hematochezia, Melena, Nausea, Vomiting Genitourinary: Denies: Dysuria, Frequency, Burning, Pain, Urgency Musculoskeletal: Reports: No Symptoms Skin: Denies: Cyanosis, Jaundice Neurological: Denies: Confusion, Dizziness Psychiatric: Denies: Confusion, Depression, Anxiety - Patient Data Vitals - Most Recent: Last Vital Signs Temp 98.5 F 03/03/19 11:00 Pulse 84 03/03/19 11:00 Resp 18 03/03/19 11:00 BP 151/76 H 03/03/19 11:00 Pulse Ox 94 L 03/03/19 11:00 Weight - Most Recent: 220 lb 3.869 oz I&O - Last 24 Hours: Intake & Output 03/03/19 03/03/19 03/03/19 03:59 11:59 19:59 Intake Total 1294 100 Output Total 1300 Balance -6 100 Lab Results Last 24 Hours: Laboratory Results - last 24 hr 03/03/19 03/03/19 Range/Units 05:25 05:25 WBC 12.57 H (4.0-11.0) K/uL RBC 5.03 (4.50-5.90) M/uL Hgb 13.8 (13.0-17.0) g/dL Hct 41.9 (38.0-50.0) % MCV 83.3 (80.0-98.0) fL MCH 27.4 (27.0-32.0) pg MCHC 32.9 (31.0-37.0) g/dL RDW Std Deviation 48.7 (28.0-62.0) fl RDW Coeff of Sarah 16 H (11.0-15.0) % Plt Count 254 (150-400) K/uL MPV 9.30 (7.40-12.00) fL Neut % (Auto) 75.0 (48.0-80.0) % Lymph % (Auto) 14.6 L (16.0-40.0) % [place] % (Auto) 9.1 (0.0-15.0) % Eos % (Auto) 1.1 (0.0-7.0) % Baso % (Auto) 0.2 (0.0-1.5) % Neut # (Auto) 9.4 H (1.4-5.7) K/uL Lymph # (Auto) 1.8 (0.6-2.4) K/uL [place] # (Auto) 1.2 H (0.0-0.8) K/uL Eos # (Auto) 0.1 (0.0-0.7) K/uL Baso # (Auto) 0.0 (0.0-0.1) K/uL Nucleated RBC % 0.0 /100WBC Nucleated RBCs # 0 K/uL Sodium 140 (136-148) mmol/L Potassium 3.6 (3.5-5.1) mmol/L Chloride 105 (98-107) mmol/L Carbon Dioxide 23.6 (21.0-32.0) mmol/L BUN 11 (7.0-18.0) mg/dL Creatinine 1.0 (0.8-1.3) mg/dL Est Cr Clr Drug Dosing 83.29 mL/min Estimated GFR (MDRD) > 60.0 ml/min Glucose 77 (74-106) mg/dL Calcium 8.2 L (8.5-10.1) mg/dL Total Bilirubin 1.3 H (0.2-1.0) mg/dL AST 15 (15-37) IU/L ALT 22 (14-63) IU/L Alkaline Phosphatase 85 (46-116) U/L Total Protein 7.0 (6.4-8.2) g/dL Albumin 3.1 L (3.4-5.0) g/dL Globulin 3.9 (2.6-4.0) g/dL Albumin/Globulin Ratio 0.8 L (0.9-1.6) Med Orders - Current: Current Medications Ciprofloxacin/Dextrose 400 mg/ (Premix) 200 mls @ 200 mls/hr IV Q12H [facility] Last Admin: 03/03/19 05:47 Dose: 200 mls/hr Sodium Chloride (Normal Saline) 1,000 mls @ 125 mls/hr IV ASDIRECTED [facility] Last Admin: 03/03/19 10:23 Dose: 125 mls/hr Metronidazole 500 mg/ Premix 100 mls @ 100 mls/hr IV Q8H [facility] Last Admin: 03/03/19 04:31 Dose: 100 mls/hr Morphine Sulfate (Morphine) 2 mg IVPUSH Q4H PRN PRN Reason: Pain Last Admin: 03/02/19 16:44 Dose: 2 mg Ondansetron HCl (Zofran) 4 mg IVPUSH Q6H PRN PRN Reason: Nausea/Vomiting Sodium Chloride (Saline Flush) 10 ml FLUSH ASDIRECTED PRN PRN Reason: Keep Vein Open Sodium Chloride (Saline Flush) 2.5 ml FLUSH ASDIRECTED PRN PRN Reason: Keep Vein Open Discontinued Medications Sodium Chloride (Normal Saline) 1,000 mls @ 999 mls/hr IV STAT ONE Stop: 03/02/19 03:29 Last Admin: 03/02/19 03:00 Dose: 999 mls/hr Levofloxacin/Dextrose 500 mg/ (Premix) 100 mls @ 100 mls/hr IV ONETIME ONE Stop: 03/02/19 05:42 Last Admin: 03/02/19 05:11 Dose: Not Given Metronidazole 500 mg/ Premix 100 mls @ 100 mls/hr IV ONETIME ONE Stop: 03/02/19 05:42 Last Admin: 03/02/19 04:57 Dose: 100 mls/hr Ciprofloxacin/Dextrose 400 mg/ (Premix) 200 mls @ 200 mls/hr IV Q12H [facility] Last Admin: 03/02/19 06:20 Dose: Not Given Sodium Chloride (Normal Saline) 1,000 mls @ 125 mls/hr IV ASDIRECTED [facility] Last Admin: 03/02/19 04:57 Dose: 125 mls/hr Metronidazole 500 mg/ Premix 100 mls @ 100 mls/hr IV Q8HR [facility] Last Admin: 03/02/19 06:49 Dose: Not Given Morphine Sulfate (Morphine) 4 mg IVPUSH ONETIME ONE Stop: 03/02/19 02:30 Last Admin: 03/02/19 02:44 Dose: 4 mg Ondansetron HCl (Zofran) 4 mg IVPUSH ONETIME ONE Stop: 03/02/19 02:30 Last Admin: 03/02/19 02:44 Dose: 4 mg - Exam General: Alert, Oriented, Cooperative, No Acute Distress HEENT: Pupils Equal, Pupils Reactive. No: Scleral Icterus Neck: Supple Lungs: Clear to Auscultation, Normal Respiratory Effort Cardiovascular: Regular Rate, Regular Rhythm, No Murmurs, Bradycardia. No: Tachycardia GI/Abdominal Exam: Soft, No Distention, No Mass, Tender (along left side). No: Guarding, Rigid, Rebound (Male) Exam: Deferred Back Exam: Normal Inspection, Full Range of Motion Extremities: Normal Inspection, Normal Range of Motion, Non-Tender Skin: Warm, Dry, Intact Neurological: No New Focal Deficit Psy/Mental Status: Alert, Normal Affect, Normal Mood Sepsis Event Note - Evaluation Sepsis Screening Result: No Definite Risk - Focused Exam Vital Signs: Vital Signs Temp Pulse Resp BP Pulse Ox 03/03/19 11:00 98.5 F 84 18 151/76 H 94 L 03/03/19 07:00 97.4 F 82 16 116/72 97 03/03/19 03:46 98.3 F 78 16 120/72 93 L Date Exam was Performed: 03/03/19 Time Exam was Performed: 13:13 Consult PN Assessment/Plan Procedures: Procedures ASSAY OF CK (CPK) (01/14/18) ASSAY OF FREE THYROXINE (12/09/17) ASSAY OF TROPONIN QUANT (01/14/18) ASSAY THYROID STIM HORMONE (01/14/18) CARDIOVASCULAR STRESS TEST (02/24/18) CHEST X-RAY 2VW FRONTAL&LATL (11/26/14) CO/MEMBANE DIFFUSE CAPACITY (12/17/17) COMPLETE CBC W/AUTO DIFF WBC (01/14/18) COMPREHEN METABOLIC PANEL (10/27/18) CREATINE MB FRACTION (01/14/18) CT ABD & PELVIS W/O CONTRAST (11/10/15) ECHO EXAM OF ABDOMEN (10/30/18) EMERGENCY DEPT VISIT (01/14/18) EMERGENCY DEPT VISIT (11/10/15) EMERGENCY DEPT VISIT (06/02/14) EVALUATION OF WHEEZING (12/17/17) GLYCOSYLATED HEMOGLOBIN TEST (01/14/18) HT MUSCLE IMAGE SPECT MULT (02/24/18) HYDRATION IV INFUSION INIT (01/14/18) LIPID PANEL (01/14/18) ROUTINE VENIPUNCTURE (10/27/18) THER/PROPH/DIAG INJ SC/IM (11/10/15) TTE W/DOPPLER COMPLETE (02/14/18) URINALYSIS AUTO W/SCOPE (10/27/18) X-RAY EXAM CHEST 1 VIEW (01/14/18) X-RAY EXAM CHEST 2 VIEWS (12/09/17) (1) Diverticulitis large intestine SNOMED Code(s): 4600247 Code(s): K57.32 - DVTRCLI OF LG INT W/O PERFORATION OR ABSCESS W/O BLEEDING Current Visit: Yes Qualifiers: Diverticulitis bleeding: without bleeding Diverticulitis complication: without perforation or abscess Qualified Code(s): K57.32 - Diverticulitis of large intestine without perforation or abscess without bleeding Problem List Initiated/Reviewed/Updated: Yes Plan: Patient is significantly improved, however loop tender on left side. Slight leucocytosis. RECOMMEND: Keep NPO today except for ice chips. Repeat CBC in am and possibly start clear liquids tomorrow with potential for discharge tomorrow.
[2019-03-03] MEDS: Morphine 2 MG/ML Syringe IVPUSH PRN (13:28)
[2019-03-03] MEDS ORDERED: Acetaminophen 325 MG Tab PO PRN (21:46)
[2019-03-04] MEDS: Sodium Chloride 0.9% 1,000 ML IV SCH (04:04)
[2019-03-04] MEDS: metroNIDAZOLE/Normal Saline 500 MG in Premix Bag 1 BAG IV SCH (04:05)
[2019-03-04] MEDS: Ciprofloxacin in D5W 400 MG in Premix Bag 1 BAG IV SCH ×2 (05:34)
[2019-03-04 06:43] LABS: BLOOD UREA NITROGEN,BUN 13 mg/dL (7.0-18.0); CARBON DIOXIDE,CO2 21.8 mmol/L (21.0-32.0); CHLORIDE,CL 107 mmol/L (98-107); GLUCOSE RANDOM 72 mg/dL (74-106); POTASSIUM,K 3.7 mmol/L (3.5-5.1); SODIUM,NA 141 mmol/L (136-148)
[2019-03-04] MEDS ORDERED: Acetaminophen 325 MG Tab PO SCH (07:30)
--- NOTE | 2019-03-04 08:36 | PCM.CONSN ---
- General Info Date of Service: 03/04/19 Admission Dx/Problem (Free Text): Acute diverticulitis Subjective Update: Patient is feeling much better and denies pain this morning. States he is passing gas but no BM yet. Functional Status: Reports: Pain Controlled, Ambulating, Urinating - Review of Systems General: Denies: Fever, Weakness, Fatigue, Malaise HEENT: Reports: No Symptoms Pulmonary: Denies: Shortness of Breath, Pleuritic Chest Pain, Cough Cardiovascular: Denies: Chest Pain Gastrointestinal: Reports: Flatus. Denies: Abdominal Pain, Constipation, Decreased Appetite, Diarrhea, Hematochezia, Melena, Nausea, Vomiting Genitourinary: Denies: Dysuria, Frequency, Burning, Pain, Urgency Musculoskeletal: Reports: No Symptoms Skin: Reports: No Symptoms Neurological: Reports: No Symptoms Psychiatric: Reports: No Symptoms - Patient Data Vitals - Most Recent: Last Vital Signs Temp 96.8 F 03/04/19 04:17 Pulse 76 03/04/19 04:17 Resp 17 03/04/19 04:17 BP 118/81 03/04/19 04:17 Pulse Ox 97 03/04/19 04:17 Weight - Most Recent: 220 lb 3.869 oz I&O - Last 24 Hours: Intake & Output 03/03/19 03/04/19 03/04/19 19:59 03:59 11:59 Intake Total 9428 680 5791 Output Total 1420 950 Balance 25 100 710 Lab Results Last 24 Hours: Laboratory Results - last 24 hr 03/04/19 03/04/19 Range/Units 05:33 05:33 WBC 9.28 (4.0-11.0) K/uL RBC 5.01 (4.50-5.90) M/uL Hgb 13.9 (13.0-17.0) g/dL Hct 42.0 (38.0-50.0) % MCV 83.8 (80.0-98.0) fL MCH 27.7 (27.0-32.0) pg MCHC 33.1 (31.0-37.0) g/dL RDW Std Deviation 48.9 (28.0-62.0) fl RDW Coeff of Sarah 16 H (11.0-15.0) % Plt Count 271 (150-400) K/uL MPV 9.30 (7.40-12.00) fL Neut % (Auto) 67.3 (48.0-80.0) % Lymph % (Auto) 22.2 (16.0-40.0) % [place] % (Auto) 7.7 (0.0-15.0) % Eos % (Auto) 2.6 (0.0-7.0) % Baso % (Auto) 0.2 (0.0-1.5) % Neut # (Auto) 6.3 H (1.4-5.7) K/uL Lymph # (Auto) 2.1 (0.6-2.4) K/uL [place] # (Auto) 0.7 (0.0-0.8) K/uL Eos # (Auto) 0.2 (0.0-0.7) K/uL Baso # (Auto) 0.0 (0.0-0.1) K/uL Nucleated RBC % 0.0 /100WBC Nucleated RBCs # 0 K/uL Sodium 141 (136-148) mmol/L Potassium 3.7 (3.5-5.1) mmol/L Chloride 107 (98-107) mmol/L Carbon Dioxide 21.8 (21.0-32.0) mmol/L BUN 13 (7.0-18.0) mg/dL Creatinine 0.9 (0.8-1.3) mg/dL Est Cr Clr Drug Dosing 92.55 mL/min Estimated GFR (MDRD) > 60.0 ml/min Glucose 72 L (74-106) mg/dL Calcium 8.3 L (8.5-10.1) mg/dL Total Bilirubin 0.8 (0.2-1.0) mg/dL AST 13 L (15-37) IU/L ALT 21 (14-63) IU/L Alkaline Phosphatase 78 (46-116) U/L Total Protein 6.8 (6.4-8.2) g/dL Albumin 2.9 L (3.4-5.0) g/dL Globulin 3.9 (2.6-4.0) g/dL Albumin/Globulin Ratio 0.7 L (0.9-1.6) Med Orders - Current: Current Medications Acetaminophen (Tylenol) 650 mg PO Q6H PRN PRN Reason: Pain Last Admin: 03/03/19 22:05 Dose: 650 mg Ciprofloxacin/Dextrose 400 mg/ (Premix) 200 mls @ 200 mls/hr IV Q12H [facility] Last Admin: 03/04/19 05:34 Dose: 200 mls/hr Sodium Chloride (Normal Saline) 1,000 mls @ 125 mls/hr IV ASDIRECTED [facility] Last Admin: 03/04/19 04:04 Dose: 125 mls/hr Metronidazole 500 mg/ Premix 100 mls @ 100 mls/hr IV Q8H [facility] Last Admin: 03/04/19 04:05 Dose: 100 mls/hr Morphine Sulfate (Morphine) 2 mg IVPUSH Q4H PRN PRN Reason: Pain Last Admin: 03/03/19 13:28 Dose: 2 mg Ondansetron HCl (Zofran) 4 mg IVPUSH Q6H PRN PRN Reason: Nausea/Vomiting Sodium Chloride (Saline Flush) 10 ml FLUSH ASDIRECTED PRN PRN Reason: Keep Vein Open Sodium Chloride (Saline Flush) 2.5 ml FLUSH ASDIRECTED PRN PRN Reason: Keep Vein Open Discontinued Medications Acetaminophen (Tylenol) 650 mg PO Q6H [facility] Sodium Chloride (Normal Saline) 1,000 mls @ 999 mls/hr IV STAT ONE Stop: 03/02/19 03:29 Last Admin: 03/02/19 03:00 Dose: 999 mls/hr Levofloxacin/Dextrose 500 mg/ (Premix) 100 mls @ 100 mls/hr IV ONETIME ONE Stop: 03/02/19 05:42 Last Admin: 03/02/19 05:11 Dose: Not Given Metronidazole 500 mg/ Premix 100 mls @ 100 mls/hr IV ONETIME ONE Stop: 03/02/19 05:42 Last Admin: 03/02/19 04:57 Dose: 100 mls/hr Ciprofloxacin/Dextrose 400 mg/ (Premix) 200 mls @ 200 mls/hr IV Q12H [facility] Last Admin: 03/02/19 06:20 Dose: Not Given Sodium Chloride (Normal Saline) 1,000 mls @ 125 mls/hr IV ASDIRECTED [facility] Last Admin: 03/02/19 04:57 Dose: 125 mls/hr Metronidazole 500 mg/ Premix 100 mls @ 100 mls/hr IV Q8HR [facility] Last Admin: 03/02/19 06:49 Dose: Not Given Morphine Sulfate (Morphine) 4 mg IVPUSH ONETIME ONE Stop: 03/02/19 02:30 Last Admin: 03/02/19 02:44 Dose: 4 mg Ondansetron HCl (Zofran) 4 mg IVPUSH ONETIME ONE Stop: 03/02/19 02:30 Last Admin: 03/02/19 02:44 Dose: 4 mg - Exam Quality Assessment: No: Supplemental Oxygen General: Alert, Oriented, Cooperative, No Acute Distress HEENT: Pupils Equal, Pupils Reactive. No: Scleral Icterus Neck: Supple Lungs: Clear to Auscultation, Normal Respiratory Effort. No: Wheezing Cardiovascular: Regular Rate, Regular Rhythm, No Murmurs GI/Abdominal Exam: Normal Bowel Sounds, Soft, Non-Tender, No Distention, No Mass. No: Guarding, Rigid, Rebound (Male) Exam: No Hernia Back Exam: Normal Inspection Extremities: Normal Inspection, Normal Range of Motion, Non-Tender. No: Bradley' s Sign Peripheral Pulses: 4+: Posterior Tibial (L), Posterior Tibial (R), Dorsalis Pedis (L), Dorsalis Pedis (R) Skin: Warm, Dry, Intact Neurological: No New Focal Deficit Psy/Mental Status: Alert, Normal Affect, Normal Mood Sepsis Event Note - Evaluation Sepsis Screening Result: No Definite Risk - Focused Exam Vital Signs: Vital Signs Temp Pulse Resp BP Pulse Ox 03/04/19 04:17 96.8 F 76 17 118/81 97 03/03/19 23:35 97.7 F 82 19 109/71 96 Date Exam was Performed: 03/04/19 Time Exam was Performed: 08:30 Consult PN Assessment/Plan Procedures: Procedures ASSAY OF CK (CPK) (01/14/18) ASSAY OF FREE THYROXINE (12/09/17) ASSAY OF LIPASE (03/01/19) ASSAY OF TROPONIN QUANT (01/14/18) ASSAY THYROID STIM HORMONE (01/14/18) CARDIOVASCULAR STRESS TEST (02/24/18) CHEST X-RAY 2VW FRONTAL&LATL (11/26/14) CO/MEMBANE DIFFUSE CAPACITY (12/17/17) COMPLETE CBC W/AUTO DIFF WBC (03/01/19) COMPREHEN METABOLIC PANEL (03/01/19) CREATINE MB FRACTION (01/14/18) CT ABD & PELV W/CONTRAST (03/01/19) CT ABD & PELVIS W/O CONTRAST (11/10/15) ECHO EXAM OF ABDOMEN (10/30/18) ELECTROCARDIOGRAM TRACING (03/01/19) EMERGENCY DEPT VISIT (03/01/19) EMERGENCY DEPT VISIT (01/14/18) EMERGENCY DEPT VISIT (11/10/15) EMERGENCY DEPT VISIT (06/02/14) EVALUATION OF WHEEZING (12/17/17) GLYCOSYLATED HEMOGLOBIN TEST (01/14/18) HT MUSCLE IMAGE SPECT MULT (02/24/18) HYDRATION IV INFUSION INIT (03/01/19) LIPID PANEL (01/14/18) ROUTINE VENIPUNCTURE (10/27/18) THER/PROPH/DIAG INJ SC/IM (11/10/15) TTE W/DOPPLER COMPLETE (02/14/18) URINALYSIS AUTO W/SCOPE (03/01/19) X-RAY EXAM CHEST 1 VIEW (03/01/19) X-RAY EXAM CHEST 2 VIEWS (12/09/17) (1) Diverticulitis large intestine SNOMED Code(s): 3164229 Code(s): K57.32 - DVTRCLI OF LG INT W/O PERFORATION OR ABSCESS W/O BLEEDING Current Visit: Yes Qualifiers: Diverticulitis bleeding: without bleeding Diverticulitis complication: without perforation or abscess Qualified Code(s): K57.32 - Diverticulitis of large intestine without perforation or abscess without bleeding Problem List Initiated/Reviewed/Updated: Yes Plan: Patient is feeling much better. Would start clear liquids and advance as tolerated. If he does well, consider discharge later today. Would treat him for a full 10-14 days with antibiotics.
[2019-03-04 08:39] VITALS: BP 131/83; PULSE 74
--- NOTE | 2019-03-04 14:01 | PCM.DCSUM1 ---
<Mariann Farmer - Last Filed: 03/04/19 13:56> Discharge Summary - Hospital Course Free Text/Narrative:: Discharge summary Admission date 03/02/2019 Discharge date 03/04 2019 Admission diagnoses: Acute diverticulitis of mid to distal sigmoid colon Past medical history of hypertension Discharge diagnoses: Acute diveReticulitis improving Consultations: Dr Raad Gooden of surgery Procedures: None Hospital course: 44-year-old male past medical history of hypertension on lisinopril presented 2 days prior with increasing worsening of her his left lower quadrant abdominal pain. Patient initially had a CT abdomen and pelvis showing diverticulitis of the mid to distal sigmoid colon and was sent home on Cipro and Flagyl however for part prior to taking his first dose patient had experienced worsening left lower quadrant pain especially with movement. Patient return to the ED and was made inpatient with IV Cipro and Flagyl initiated. Dr. Raad Gooden of surgery was consulted and recommended continue n.p.o. status until leukocytosis resolved. On day of discharge leukocytosis had resolved and patient was advised to complete course of Cipro and Flagyl 7 more additional days patient already has prescription from previous outpatient visit. Patient advised to continue to advance diet slowly at home. Advised for outpatient colonoscopy in 6 to 8 weeks; follow-up appointment Dr. Paula Gooden has been made. Patient advised to continue home medications. Discharge condition: Stable Disposition: Home Discharge medications: Ciprofloxacin /Flagyl Discharge instructions: Advised to follow with PCP within 2 to 3 weeks. Advised to follow-up with surgery in 6 to 8 weeks for repeat colonoscopy. Advised to complete course of antibiotics. Advance diet slowly at home. Follow-up: PCP/Surgery - Discharge Data Discharge Date: 03/04/19 Discharge Disposition: Home, Self-Care 01 Condition: Good - Referral to Home Health Primary Care Physician: PCP None - Patient Summary/Data Consults: Consultations 03/02/19 04:40 Consult to Physician [CONS] Stat - Patient Instructions Diet: Heart Healthy Diet Driving: May Drive Today Showering/Bathing: July Shower Notify Provider of: Fever, Increased Pain, Swelling and Redness, Nausea and/or Vomiting Other/Special Instructions: Patient advised to complete 7/10 days of his home antibiotics : ciprofloxacin and flagyl. Advised to follow up with surgery in 4- 6 weeks for a repeat colonoscopy. Advised to follow up with PCP in 2-3 weeks. - Discharge Plan *PRESCRIPTION DRUG MONITORING PROGRAM REVIEWED*: No *COPY OF PRESCRIPTION DRUG MONITORING REPORT IN PATIENT MARILU: No Prescriptions/Med Rec: Ciprofloxacin HCl [Cipro] 500 mg PO BID 7 Days #14 tablet metroNIDAZOLE [Flagyl] 500 mg PO Q8H 7 Days #21 tab Home Medications: Home Meds Aspirin 1 tab PO DAILY 01/14/18 [History] Pantoprazole [ProTONIX] 40 mg PO ACBREAKFAST #30 tab.cr 01/15/18 [Rx] Acetaminophen [Tylenol] 650 mg PO Q6H PRN tablet 03/04/19 [Rx] Ciprofloxacin HCl [Cipro] 500 mg PO BID 7 Days #14 tablet 03/04/19 [Rx] metroNIDAZOLE [Flagyl] 500 mg PO Q8H 7 Days #21 tab 03/04/19 [Rx] Patient Handouts: High-Fiber Diet, Diverticulitis, [id number], Ciprofloxacin tablets, Metronidazole tablets or capsules Referrals: [facility] [Outside] Raad Gooden MD [Physician] - 03/12/19 10:00 am Jaspreet Inman DO [Physician] - 03/09/19 9:45 am - Discharge Summary/Plan Comment DC Time >30 min.: No - Patient Data Vitals - Most Recent: Last Vital Signs Temp 98.1 F 03/04/19 08:00 Pulse 74 03/04/19 08:00 Resp 18 03/04/19 08:00 BP 131/83 03/04/19 08:00 Pulse Ox 97 03/04/19 08:00 Weight - Most Recent: 99.9 kg I&O - Last 24 hours: Intake & Output 03/03/19 03/04/19 03/04/19 22:59 06:59 14:59 Intake Total 1445 1760 Output Total 1420 950 Balance 25 810 Lab Results - Last 24 hrs: Laboratory Results - last 24 hr 03/04/19 03/04/19 Range/Units 05:33 05:33 WBC 9.28 (4.0-11.0) K/uL RBC 5.01 (4.50-5.90) M/uL Hgb 13.9 (13.0-17.0) g/dL Hct 42.0 (38.0-50.0) % MCV 83.8 (80.0-98.0) fL MCH 27.7 (27.0-32.0) pg MCHC 33.1 (31.0-37.0) g/dL RDW Std Deviation 48.9 (28.0-62.0) fl RDW Coeff of Sarah 16 H (11.0-15.0) % Plt Count 271 (150-400) K/uL MPV 9.30 (7.40-12.00) fL Neut % (Auto) 67.3 (48.0-80.0) % Lymph % (Auto) 22.2 (16.0-40.0) % Mcleod % (Auto) 7.7 (0.0-15.0) % Eos % (Auto) 2.6 (0.0-7.0) % Baso % (Auto) 0.2 (0.0-1.5) % Neut # (Auto) 6.3 H (1.4-5.7) K/uL Lymph # (Auto) 2.1 (0.6-2.4) K/uL Mcleod # (Auto) 0.7 (0.0-0.8) K/uL Eos # (Auto) 0.2 (0.0-0.7) K/uL Baso # (Auto) 0.0 (0.0-0.1) K/uL Nucleated RBC % 0.0 /100WBC Nucleated RBCs # 0 K/uL Sodium 141 (136-148) mmol/L Potassium 3.7 (3.5-5.1) mmol/L Chloride 107 (98-107) mmol/L Carbon Dioxide 21.8 (21.0-32.0) mmol/L BUN 13 (7.0-18.0) mg/dL Creatinine 0.9 (0.8-1.3) mg/dL Est Cr Clr Drug Dosing 92.55 mL/min Estimated GFR (MDRD) > 60.0 ml/min Glucose 72 L (74-106) mg/dL Calcium 8.3 L (8.5-10.1) mg/dL Total Bilirubin 0.8 (0.2-1.0) mg/dL AST 13 L (15-37) IU/L ALT 21 (14-63) IU/L Alkaline Phosphatase 78 (46-116) U/L Total Protein 6.8 (6.4-8.2) g/dL Albumin 2.9 L (3.4-5.0) g/dL Globulin 3.9 (2.6-4.0) g/dL Albumin/Globulin Ratio 0.7 L (0.9-1.6) Med Orders - Current: Current Medications Acetaminophen (Tylenol) 650 mg PO Q6H PRN PRN Reason: Pain Last Admin: 03/03/19 22:05 Dose: 650 mg Ciprofloxacin/Dextrose 400 mg/ (Premix) 200 mls @ 200 mls/hr IV Q12H [facility] Last Admin: 03/04/19 05:34 Dose: 200 mls/hr Sodium Chloride (Normal Saline) 1,000 mls @ 125 mls/hr IV ASDIRECTED [facility] Last Admin: 03/04/19 04:04 Dose: 125 mls/hr Metronidazole 500 mg/ Premix 100 mls @ 100 mls/hr IV Q8H [facility] Last Admin: 03/04/19 04:05 Dose: 100 mls/hr Morphine Sulfate (Morphine) 2 mg IVPUSH Q4H PRN PRN Reason: Pain Last Admin: 03/03/19 13:28 Dose: 2 mg Ondansetron HCl (Zofran) 4 mg IVPUSH Q6H PRN PRN Reason: Nausea/Vomiting Sodium Chloride (Saline Flush) 10 ml FLUSH ASDIRECTED PRN PRN Reason: Keep Vein Open Sodium Chloride (Saline Flush) 2.5 ml FLUSH ASDIRECTED PRN PRN Reason: Keep Vein Open Discontinued Medications Acetaminophen (Tylenol) 650 mg PO Q6H [facility] Last Admin: 03/04/19 08:43 Dose: Not Given Sodium Chloride (Normal Saline) 1,000 mls @ 999 mls/hr IV STAT ONE Stop: 03/02/19 03:29 Last Admin: 03/02/19 03:00 Dose: 999 mls/hr Levofloxacin/Dextrose 500 mg/ (Premix) 100 mls @ 100 mls/hr IV ONETIME ONE Stop: 03/02/19 05:42 Last Admin: 03/02/19 05:11 Dose: Not Given Metronidazole 500 mg/ Premix 100 mls @ 100 mls/hr IV ONETIME ONE Stop: 03/02/19 05:42 Last Admin: 03/02/19 04:57 Dose: 100 mls/hr Ciprofloxacin/Dextrose 400 mg/ (Premix) 200 mls @ 200 mls/hr IV Q12H [facility] Last Admin: 03/02/19 06:20 Dose: Not Given Sodium Chloride (Normal Saline) 1,000 mls @ 125 mls/hr IV ASDIRECTED [facility] Last Admin: 03/02/19 04:57 Dose: 125 mls/hr Metronidazole 500 mg/ Premix 100 mls @ 100 mls/hr IV Q8HR [facility] Last Admin: 03/02/19 06:49 Dose: Not Given Morphine Sulfate (Morphine) 4 mg IVPUSH ONETIME ONE Stop: 03/02/19 02:30 Last Admin: 03/02/19 02:44 Dose: 4 mg Ondansetron HCl (Zofran) 4 mg IVPUSH ONETIME ONE Stop: 03/02/19 02:30 Last Admin: 03/02/19 02:44 Dose: 4 mg <Derrick Christie - Last Filed: 03/07/19 14:27> Discharge Summary - Hospital Course HPI Initial Comments: I have seen and evaluated the patient and agree with the residents note unless specified in my note - Referral to Home Health Primary Care Physician: PCP None - Patient Summary/Data Consults: Consultations 03/02/19 04:40 Consult to Physician [CONS] Stat - Patient Data Vitals - Most Recent: Last Vital Signs Temp 36.7 C 03/04/19 08:00 Pulse 74 03/04/19 08:00 Resp 18 03/04/19 08:00 BP 131/83 03/04/19 08:00 Pulse Ox 97 03/04/19 08:00 Med Orders - Current: Current Medications Discontinued Medications Acetaminophen (Tylenol) 650 mg PO Q6H PRN PRN Reason: Pain Last Admin: 03/03/19 22:05 Dose: 650 mg Acetaminophen (Tylenol) 650 mg PO Q6H [facility] Last Admin: 03/04/19 08:43 Dose: Not Given Sodium Chloride (Normal Saline) 1,000 mls @ 999 mls/hr IV STAT ONE Stop: 03/02/19 03:29 Last Admin: 03/02/19 03:00 Dose: 999 mls/hr Levofloxacin/Dextrose 500 mg/ (Premix) 100 mls @ 100 mls/hr IV ONETIME ONE Stop: 03/02/19 05:42 Last Admin: 03/02/19 05:11 Dose: Not Given Metronidazole 500 mg/ Premix 100 mls @ 100 mls/hr IV ONETIME ONE Stop: 03/02/19 05:42 Last Admin: 03/02/19 04:57 Dose: 100 mls/hr Ciprofloxacin/Dextrose 400 mg/ (Premix) 200 mls @ 200 mls/hr IV Q12H [facility] Last Admin: 03/02/19 06:20 Dose: Not Given Sodium Chloride (Normal Saline) 1,000 mls @ 125 mls/hr IV ASDIRECTED [facility] Last Admin: 03/02/19 04:57 Dose: 125 mls/hr Ciprofloxacin/Dextrose 400 mg/ (Premix) 200 mls @ 200 mls/hr IV Q12H [facility] Last Admin: 03/04/19 05:34 Dose: 200 mls/hr Metronidazole 500 mg/ Premix 100 mls @ 100 mls/hr IV Q8HR [facility] Last Admin: 03/02/19 06:49 Dose: Not Given Sodium Chloride (Normal Saline) 1,000 mls @ 125 mls/hr IV ASDIRECTED [facility] Last Admin: 03/04/19 04:04 Dose: 125 mls/hr Metronidazole 500 mg/ Premix 100 mls @ 100 mls/hr IV Q8H [facility] Last Admin: 03/04/19 04:05 Dose: 100 mls/hr Morphine Sulfate (Morphine) 4 mg IVPUSH ONETIME ONE Stop: 03/02/19 02:30 Last Admin: 03/02/19 02:44 Dose: 4 mg Morphine Sulfate (Morphine) 2 mg IVPUSH Q4H PRN PRN Reason: Pain Last Admin: 03/03/19 13:28 Dose: 2 mg Ondansetron HCl (Zofran) 4 mg IVPUSH ONETIME ONE Stop: 03/02/19 02:30 Last Admin: 03/02/19 02:44 Dose: 4 mg Ondansetron HCl (Zofran) 4 mg IVPUSH Q6H PRN PRN Reason: Nausea/Vomiting Sodium Chloride (Saline Flush) 10 ml FLUSH ASDIRECTED PRN PRN Reason: Keep Vein Open Sodium Chloride (Saline Flush) 2.5 ml FLUSH ASDIRECTED PRN PRN Reason: Keep Vein Open
== END 2019-03-04 13:30 | disposition home or self-care (01) ==
LOC: MW.ED 02:14 → MW.MS 04:42
PROVIDERS: ADMIT Student in an Organized Health Care Education/Training Program; ATTEND Student in an Organized Health Care Education/Training Program
DX: K57.32 Diverticulitis of large intestine without perforation or abscess without bleeding (principal); E83.51 Hypocalcemia; I10 Essential (primary) hypertension; K21.9 Gastro-esophageal reflux disease without esophagitis; F17.200 Nicotine dependence, unspecified, uncomplicated; Z88.0 Allergy status to penicillin; Z79.82 Long term (current) use of aspirin; Z79.899 Other long term (current) drug therapy
CPT/HCPCS: 36415; 74019; 74019-26; 80053; 83605; 85025; 96361; 96365; 96366; 96367; 96374; 96375; 96376; 99285-25; A9270-GY; G0378; J0744; J2270; J2405; J3490; J7030

== ENCOUNTER 2019-06-08 07:51 | Day surgery (SDC) | payer OTHER ==
[~2019-06-08 07:51] MED LIST: Lidocaine 2% 5 ML SDV ONE; Propofol 200 MG/20 ML SDV ONE; fentaNYL 100 MCG/2 ML SDV ONE
[2019-06-08] MEDS ORDERED: Lactated Ringers 1,000 ML IV SCH ×2 (08:45→10:15)
[2019-06-08] MEDS ORDERED: Midazolam 1 MG/ML 2 ML SDV ONE (08:57)
--- NOTE | 2019-06-08 09:03 | PCM.PREANE ---
Preanesthetic Assessment - Anesthesia/Transfusion/Family Hx Anesthesia History: No Prior Anesthesia Family History of Anesthesia Reaction: No Transfusion History: No Prior Transfusion(s) - Review of Systems General: No Symptoms Pulmonary: No Symptoms Cardiovascular: No Symptoms Gastrointestinal: No Symptoms Neurological: No Symptoms - Physical Assessment NPO Status Date: 06/07/19 Vital Signs: Last Vital Signs Temp 98.4 F 06/08/19 08:35 Pulse 71 06/08/19 08:35 Resp 16 06/08/19 08:35 BP 133/86 06/08/19 08:35 Pulse Ox 96 06/08/19 08:35 Height: 5 ft 6 in Weight: 97.069 kg ASA Class: 2 Mental Status: Alert & Oriented x3 Dentition: Reports: Normal Dentition ROM/Head Extension: Full Lungs: Clear to Auscultation, Normal Respiratory Effort Cardiovascular: Regular Rate, Regular Rhythm - Allergies Allergies/Adverse Reactions: Allergies Allergy/AdvReac Type Severity Reaction Status Date / Time Penicillins Allergy Swelling Verified 06/08/19 08:32 - Blood Blood Available: No - Anesthesia Plan Pre-Op Medication Ordered: None - Acknowledgements Anesthesia Type Planned: General Anesthesia Pt an Appropriate Candidate for the Planned Anesthesia: Yes Alternatives and Risks of Anesthesia Discussed w Pt/Guardian: Yes Pt/Guardian Understands and Agrees with Anesthesia Plan: Yes Additional Comments: PMH: anton, smoker, htn PLAN: tiva PreAnesthesia Questionnaire - Past Health History Medical/Surgical History: Denies Medical/Surgical History HEENT History: Reports: Other (See Below) Other HEENT History: wears glasses Cardiovascular History: Reports: High Cholesterol, Hypertension Respiratory History: Reports: None Gastrointestinal History: Reports: GERD, Hemorrhoids, Other (See Below) Other Gastrointestinal History: diverticulitis Genitourinary History: Reports: None Musculoskeletal History: Reports: None Neurological History: Reports: None Psychiatric History: Reports: None Endocrine/Metabolic History: Reports: Obesity/BMI 30+ Hematologic History: Reports: None Immunologic History: Reports: None Oncologic (Cancer) History: Reports: None Dermatologic History: Reports: None - Infectious Disease History Infectious Disease History: Reports: None - Past Surgical History Head Surgeries/Procedures: Reports: None HEENT Surgical History: Reports: None Cardiovascular Surgical History: Reports: None Respiratory Surgical History: Reports: None GI Surgical History: Reports: None Male Surgical History: Reports: None Endocrine Surgical History: Reports: None Neurological Surgical History: Reports: None Musculoskeletal Surgical History: Reports: None Oncologic Surgical History: Reports: None Dermatological Surgical History: Reports: None - SUBSTANCE USE Smoking Status *Q: Current Every Day Smoker Tobacco Use Within Last Twelve Months: Cigarettes - HOME MEDS Home Medications: Home Meds Aspirin 1 tab PO ASDIRECTED PRN 01/14/18 [History] Pantoprazole [ProTONIX] 40 mg PO ACBREAKFAST #30 tab.cr 01/15/18 [Rx] Acetaminophen [Tylenol] 650 mg PO Q6H PRN tablet 03/04/19 [Rx] Nitroglycerin 0.4 mg SL ASDIRECTED PRN 06/02/19 [History] Rosuvastatin Calcium 20 mg PO BEDTIME 06/02/19 [History] Sildenafil Citrate 50 mg PO ASDIRECTED PRN 06/02/19 [History] amLODIPine [Norvasc] 1.5 tab PO BEDTIME 06/02/19 [History] - CURRENT (IN HOUSE) MEDS Current Meds: Current Medications Lactated Ringer's (Ringers, Lactated) 1,000 mls @ 125 mls/hr IV ASDIRECTED [facility] Last Admin: 06/08/19 08:40 Dose: 125 mls/hr Discontinued Medications Fentanyl (Sublimaze) Confirm Administered Dose 100 mcg .ROUTE .STK-MED ONE Stop: 06/08/19 06:55 Lidocaine (Xylocaine-Mpf 2%) Confirm Administered Dose 5 ml .ROUTE .STK-MED ONE Stop: 06/08/19 06:55 Midazolam HCl (Versed 1 Mg/Ml) Confirm Administered Dose 2 mg .ROUTE .STK-MED ONE Stop: 06/08/19 08:58 Propofol (Diprivan 20 Ml) Confirm Administered Dose 400 mg .ROUTE .STK-MED ONE Stop: 06/08/19 06:55
--- NOTE | 2019-06-08 10:07 | PCM.OPNOTE ---
- General Post-Op/Procedure Note Date of Surgery/Procedure: 06/08/19 Operative Procedure(s): Colonoscopy with sigmoid colon biopsy and cold rectal polypectomy Pre Op Diagnosis: Rectal bleeding. Recent episode of diverticulitis. Post-Op Diagnosis: Rectal polyp. Sigmoid inflammatory changes and possible angiodysplasia. Mild sigmoid diverticulosis. Anesthesia Technique: MAC (ASA II) Primary Surgeon: Raad Gooden Condition: Good Free Text/Narrative:: DICTATION [id number] CPT CODE [id number]
[2019-06-08 11:13] VITALS: BP 105/70; PULSE 93
--- NOTE | 2019-06-08 11:20 | PCM.POSTAN ---
POST ANESTHESIA ASSESSMENT - MENTAL STATUS Mental Status: Alert, Oriented - VITAL SIGNS Vital Signs: Last Vital Signs Temp 97.7 F 06/08/19 10:50 Pulse 93 06/08/19 10:50 Resp 16 06/08/19 10:50 BP 105/70 06/08/19 10:50 Pulse Ox 94 L 06/08/19 10:50 - RESPIRATORY Respiratory Status: Respiratory Rate WNL, Airway Patent, O2 Saturation Stable - CARDIOVASCULAR CV Status: Pulse Rate WNL, Blood Pressure Stable - GASTROINTESTINAL GI Status: No Symptoms - POST OP HYDRATION Hydration Status: Adequate & Stable
--- NOTE | 2019-06-08 11:20 | PCM48HPAN ---
Post Anesthesia Note - EVALUATION WITHIN 48HRS OF ANESTHETIC Vital Signs in Normal Range: Yes Patient Participated in Evaluation: Yes Respiratory Function Stable: Yes Airway Patent: Yes Cardiovascular Function Stable: Yes Hydration Status Stable: Yes Pain Control Satisfactory: Yes Nausea and Vomiting Control Satisfactory: Yes Mental Status Recovered: Yes Vital Signs: Last Vital Signs Temp 97.7 F 06/08/19 10:50 Pulse 93 06/08/19 10:50 Resp 16 06/08/19 10:50 BP 105/70 06/08/19 10:50 Pulse Ox 94 L 06/08/19 10:50
--- NOTE | 2019-06-08 13:06 | OR ---
SURGEON: Raad Gooden M.D. DATE OF PROCEDURE: 06/08/2019 OPERATION PERFORMED: Colonoscopy with sigmoid colon biopsies and cold rectal polypectomy. PRIMARY SURGEON: Raad Gooden M.D. ANESTHESIA: MAC. ASA CLASSIFICATION: II. PREOPERATIVE DIAGNOSES: 1. Rectal bleeding. 2. Mild angiodysplasia. 3. Diverticulitis. POSTOPERATIVE DIAGNOSES: 1. Mild angiodysplasia. 2. Rectal polyp. 3. Sigmoid diverticulosis. DESCRIPTION OF PROCEDURE: The patient was taken to the endoscopy room and positioned on the endoscopy table in the left lateral decubitus position. Time-out was called for appropriate identification of the patient and procedure. Monitored anesthesia care was provided. The colonoscope was inserted into the rectum and advanced with minimal difficulty to the cecum. The cecum was identified by internal landmarks and external pressure. The colonoscope was retroflexed to visualize the ascending colon, then straightened and slowly withdrawn. Cecum, ascending colon, hepatic flexure, transverse colon, splenic flexure, and descending colon showed no tumors, polyps, diverticula, or angiodysplastic changes. Sigmoid colon does demonstrate scattered diverticular change. There did appear to be some mild angiodysplastic changes. No serious or large lesions were identified. Biopsies of this area were taken to document the presumed angiodysplasia. The colonoscope was then withdrawn to the proximal rectum, where small polyp was encountered and removed with the cold biopsy forceps. The colonoscope was then retroflexed in the rectum to visualize the anal orifice from above. No tumors, polyps, or acute hemorrhoidal changes were noted. The colonoscope was then straightened, the rectum aspirated, and the colonoscope removed. The patient tolerated the procedure well and was taken to recovery room in stable condition. SAMUEL / SYLWIA /[id number]
== END 2019-06-08 11:00 | disposition home or self-care (01) ==
LOC: MW.SDS 07:51
PROVIDERS: ATTEND Surgery
DX: K62.1 Rectal polyp (principal); K55.20 Angiodysplasia of colon without hemorrhage; K57.30 Diverticulosis of large intestine without perforation or abscess without bleeding; I10 Essential (primary) hypertension; K21.9 Gastro-esophageal reflux disease without esophagitis; E78.5 Hyperlipidemia, unspecified; F17.200 Nicotine dependence, unspecified, uncomplicated; Z79.899 Other long term (current) drug therapy; Z88.0 Allergy status to penicillin
CPT/HCPCS: 45380; 88305; J2001; J2250; J2704; J3010; J7120